=== PATIENT | male | born 1940 | race Hispanic/Latino ===

== ENCOUNTER 2021-09-22 20:23 | Inpatient (IN) | payer MEDICARE, SELFPAY ==
[2021-09-22] MEDS ORDERED: Nitroglycerin 50 MG/250 ML BOT 250 ML ONE (20:42)
[2021-09-22] MEDS ORDERED: Furosemide 40 MG/4 ML VIAL ONE (20:42)
[2021-09-22 20:53] LABS: #Eosinphils 0.3 thou/uL (0.0-0.7); #Lymphocytes 2.1 thou/uL (1.20-3.40); #Monocytes 0.6 thou/uL (0.11-0.59); #Neutrophils 6.6 thou/uL (1.40-6.50); %Basophils 0.3 % (0.0-1.0); %Eosinophils 3.3 % (0.0-10.0); %Lymphocytes 21.5 % (21.0-51.0); %Neutrophils 68.9 % (42.0-75.0); Hemoglobin 12.9 g/dL (14.0-18.0); Mean Corpuscular Hemoglobin 32.1 pg (27.0-31.0); Mean Platelet Volume 6.6 fL (7.4-10.4); Platelet Count 296 thou/uL (130-400); RBC Distribution Width 12.9 % (11.5-14.5); Red Blood Cell (RBC) Count 4.01 mill/uL (4.70-6.10); White Blood Cell (WBC) Count 9.6 thou/uL (4.8-10.8)
[2021-09-22 21:12] LABS: ALT (SGPT) 11 U/L (8-55); AST (SGOT) 24 U/L (5-34); Albumin 3.9 g/dL (3.4-4.8); Alkaline Phosphatase 114 U/L (40-110); Anion Gap 15 mmol/L (10-20); BUN (Urea Nitrogen) 35 mg/dL (8.4-25.7); Bilirubin, Total 0.3 mg/dL (0.2-1.2); Calc. Creatinine Clearance 0 mL/min (70-130); Calcium 8.6 mg/dL (7.8-10.44); Carbon Dioxide 20 mmol/L (23-31); Chloride 106 mmol/L (98-107); Globulin 2.8 g/dL (2.4-3.5); Glucose 160 mg/dL (83-110); Potassium 4.4 mmol/L (3.5-5.1); Protein, Total 6.7 g/dL (5.8-8.1); Sodium 137 mmol/L (136-145)
[2021-09-22] MEDS ORDERED: Azithromycin 500 MG VIAL ONE (21:32)
[2021-09-22] MEDS ORDERED: cefTRIAXone\\ROCEPHIN 2 GM VIAL ONE (21:32)
[2021-09-22] MEDS ORDERED: Aspirin Chewable 81 MG TAB ONE (22:54)
[2021-09-22] MEDS ORDERED: Nitroglycerin 2% Ointment 1 INCH/1 GM Packet ONE (22:59)
[2021-09-22] MEDS ORDERED: Enoxaparin Sodium 80 MG/0.8 ML SYRINGE ONE (23:13)
[2021-09-22 23:25] LABS: CKMB 4.3 ng/mL (0-6.6)
[2021-09-22] MEDS ORDERED: hydrALAZINE 20 MG/ML VIAL SLOW IVP PRN (23:51)
[2021-09-22] MEDS ORDERED: Nitroglycerin 0.4 MG TAB (25 Tab Bottle) SL PRN (23:51)
[2021-09-22] MEDS ORDERED: HYDROcodone/Acetaminophen 7.5/325 mg Tablet PO PRN (23:54)
[2021-09-22] MEDS ORDERED: Bisacodyl 5 MG TAB PO PRN (23:54)
[2021-09-22] MEDS ORDERED: Dextrose 5% in Water 1,000 ML IV PRN (23:54)
[2021-09-22] MEDS ORDERED: Zolpidem Tartrate 5 MG TAB PO PRN (23:54)
[2021-09-22] MEDS ORDERED: HumaLOG 300 UNITS/3 ML VIAL SC PRN ×2 (23:54)
[2021-09-22] MEDS ORDERED: Dextrose 50% Abboject 50 ML SYRINGE SLOW IVP PRN (23:54)
[2021-09-22] MEDS ORDERED: Acetaminophen 325 MG TAB PO PRN (23:54)
[2021-09-22] MEDS ORDERED: Ondansetron ODT 4 MG TAB PO PRN (23:54)
[2021-09-23] MEDS ORDERED: Morphine 4 MG/ML VIAL SLOW IVP PRN (00:08)
[2021-09-23] MEDS ORDERED: Furosemide 40 MG/4 ML VIAL ONE ×2 (00:14→09:01)
[2021-09-23] MEDS ORDERED: Aspirin 325 MG TAB PO SCH (00:15)
[2021-09-23] MEDS ORDERED: Furosemide 40 MG/4 ML VIAL SLOW IVP SCH (00:15)
[2021-09-23 00:20] LABS: Critical Call Chem Troponin I RESULT DECREASING; Troponin I 6.638 ng/mL (< 0.028)
[2021-09-23 04:48] LABS: Hemoglobin 12.4 g/dL (14.0-18.0); Mean Platelet Volume 6.7 fL (7.4-10.4); Platelet Count 288 thou/uL (130-400); Red Blood Cell (RBC) Count 3.86 mill/uL (4.70-6.10); White Blood Cell (WBC) Count 6.5 thou/uL (4.8-10.8)
[2021-09-23 04:53] LABS: ALT (SGPT) 10 U/L (8-55); AST (SGOT) 20 U/L (5-34); Albumin 3.8 g/dL (3.4-4.8); Alkaline Phosphatase 105 U/L (40-110); Anion Gap 18 mmol/L (10-20); BUN (Urea Nitrogen) 38 mg/dL (8.4-25.7); Bilirubin, Total 0.3 mg/dL (0.2-1.2); Calc. Creatinine Clearance 25 mL/min (70-130); Calcium 8.8 mg/dL (7.8-10.44); Carbon Dioxide 18 mmol/L (23-31); Chloride 105 mmol/L (98-107); Globulin 3.3 g/dL (2.4-3.5); Glucose 192 mg/dL (83-110); Potassium 4.3 mmol/L (3.5-5.1); Protein, Total 7.1 g/dL (5.8-8.1); Sodium 137 mmol/L (136-145)
[2021-09-23 05:15] LABS: Band 6 % (5-11); Lymphocytes 7 % (21-51); MDiff Complete? YES; Neutrophil 87 % (42-75)
[2021-09-23 05:46] LABS: Critical Call Chem Troponin I RESULT DECREASING; Troponin I 6.578 ng/mL (< 0.028)
[2021-09-23 07:07] LABS: Bacteria/HPF None Seen HPF (None Seen); Bilirubin Negative (Negative); Blood, Urine Trace (Negative); Clarity Clear (Clear); Glucose, Urine (Dipstick) Normal (Negative); Ketone, Urine Negative (Negative); Leukocyte Negative Leu/uL (Negative); Nitrite Negative (Negative); Protein, Urine (Dipstick) 20 mg/dL (Neg-Trace); RBC/HPF 0-3 HPF (0-3); Specific Gravity, Urine 1.009 (1.002-1.036); Squamous Epithelial None Seen HPF (0-3); Urobilinogen Normal mg/dL (Less than 2); WBC/HPF None Seen HPF (0-3)
[2021-09-23 07:09] LABS: Urine Culture Reflex No No
[2021-09-23 07:29] LABS: Creatinine, Urine Less than 20.00 mg/dL (63-166); Protein, Urine Random Quant 36 mg/dL (1-14); Sodium, Urine 110 mmol/L (Not Available); Urea Nitrogen, Random Urine 96 mg/dl
[2021-09-23] MEDS ORDERED: Cefepime 1 GM in Sodium Chloride 0.9% 100 ML IVPB SCH (09:00)
[2021-09-23] MEDS ORDERED: Nicotine 21 MG PATCH TD SCH (09:00)
[2021-09-23] MEDS ORDERED: Clopidogrel Bisulfate 75 MG TAB PO SCH (09:00)
[2021-09-23] MEDS ORDERED: Enoxaparin Sodium 30 MG/0.3 ML SYRINGE SC SCH (09:00)
[2021-09-23] MEDS ORDERED: Enoxaparin Sodium 30 MG/0.3 ML SYRINGE ONE (09:01)
[2021-09-23] MEDS ORDERED: Famotidine 20 MG TAB ONE (09:01)
[2021-09-23] MEDS ORDERED: Clopidogrel Bisulfate 75 MG TAB ONE (09:01)
[2021-09-23] MEDS ORDERED: Cefepime 1 GM VIAL ONE (09:01)
[2021-09-23] MEDS ORDERED: Aspirin Chewable 81 MG TAB ONE (09:01)
[2021-09-23] MEDS: Carvedilol 6.25 MG TAB PO SCH ×2 (09:18→21:53)
[2021-09-23] MEDS: Aspirin Chewable 81 MG TAB PO SCH (09:19)
[2021-09-23] MEDS: Famotidine 20 MG TAB PO SCH (09:19)
[2021-09-23] MEDS: Furosemide 40 MG/4 ML VIAL SLOW IVP SCH (09:20)
[2021-09-23 09:58] LABS: Hemoglobin 12.1 g/dL (14.0-18.0); Platelet Count 278 thou/uL (130-400)
[2021-09-23] MEDS ORDERED: Heparin 25,000 units/D5W 500 ML ONE (10:38)
[2021-09-23] MEDS ORDERED: Heparin 10,000 UNITS/ 10 ML VIAL ONE (10:40)
[2021-09-23] MEDS: Heparin 10,000 UNITS/ 10 ML VIAL SLOW IVP SCH (10:55)
[2021-09-23] MEDS: Heparin 25,000 units/D5W 500 ML IVPB SCH (11:01)
[2021-09-23 11:53] LABS: SARS-CoV-2 NAA Rapid Test Not Detected (NotDetected)
[2021-09-23] MEDS: Zinc Sulfate 220 MG CAP PO SCH (15:45)
[2021-09-23] MEDS: Sodium Bicarbonate Tab 325 MG TAB PO SCH ×2 (15:45→21:45)
[2021-09-23] MEDS ORDERED: cefTRIAXone\\ROCEPHIN 1 GM in Sodium Chloride 0.9% 100 ML IVPB SCH (20:00)
[2021-09-23] MEDS ORDERED: Atorvastatin Calcium 40 MG TAB PO SCH (21:00)
[2021-09-23] MEDS ORDERED: Azithromycin 500 MG in Sodium Chloride 0.9% 250 ML 250 ML IVPB SCH (21:00)
[2021-09-24 04:55] LABS: Anion Gap 16 mmol/L (10-20); BUN (Urea Nitrogen) 48 mg/dL (8.4-25.7); Calc. Creatinine Clearance 24 mL/min (70-130); Calcium 8.7 mg/dL (7.8-10.44); Carbon Dioxide 18 mmol/L (23-31); Cardiac Risk 3.5 (Less than 4.5); Chloride 106 mmol/L (98-107); Cholesterol 220 mg/dl (< 200 Desired); Glucose 105 mg/dL (83-110); HDL Cholesterol 63 mg/dL (>60 Neg Risk); LDL Cholesterol, Calculated 141 mg/dL; Potassium 4.4 mmol/L (3.5-5.1); Sodium 136 mmol/L (136-145); Triglycerides 79 mg/dL (Less than 150)
[2021-09-24] MEDS: Heparin 10,000 UNITS/ 10 ML VIAL SLOW IVP SCH (05:06)
[2021-09-24] MEDS: Furosemide 40 MG/4 ML VIAL SLOW IVP SCH (08:50)
[2021-09-24] MEDS: Aspirin Chewable 81 MG TAB PO SCH (08:50)
[2021-09-24] MEDS: Zinc Sulfate 220 MG CAP PO SCH (08:50)
[2021-09-24] MEDS: Famotidine 20 MG TAB PO SCH (08:50)
[2021-09-24] MEDS: Carvedilol 6.25 MG TAB PO SCH ×2 (08:50→17:37)
[2021-09-24] MEDS: Sodium Bicarbonate Tab 325 MG TAB PO SCH ×3 (08:50→20:46)
[2021-09-24] MEDS: Heparin 25,000 units/D5W 500 ML IVPB SCH (15:46)
[2021-09-24] MEDS: Atorvastatin Calcium 40 MG TAB PO SCH (20:46)
[2021-09-25 04:10] LABS: Anion Gap 16 mmol/L (10-20); BUN (Urea Nitrogen) 51 mg/dL (8.4-25.7); Calc. Creatinine Clearance 26 mL/min (70-130); Calcium 8.3 mg/dL (7.8-10.44); Carbon Dioxide 21 mmol/L (23-31); Chloride 102 mmol/L (98-107); Glucose 105 mg/dL (83-110); Potassium 3.8 mmol/L (3.5-5.1); Sodium 135 mmol/L (136-145)
[2021-09-25 08:17] LABS: Iron Binding Capacity, Total 188 mcg/dL (261-462)
[2021-09-25 08:18] LABS: Iron 62 ug/dL (65-175)
[2021-09-25] MEDS: Carvedilol 6.25 MG TAB PO SCH ×2 (08:59→17:30)
[2021-09-25] MEDS: Sodium Bicarbonate Tab 325 MG TAB PO SCH ×3 (09:00→21:20)
[2021-09-25] MEDS: Famotidine 20 MG TAB PO SCH (09:00)
[2021-09-25] MEDS: Zinc Sulfate 220 MG CAP PO SCH (09:00)
[2021-09-25] MEDS: Aspirin Chewable 81 MG TAB PO SCH (09:00)
[2021-09-25 09:59] LABS: Hemoglobin 11.6 g/dL (14.0-18.0); Platelet Count 270 thou/uL (130-400)
[2021-09-25] MEDS: Atorvastatin Calcium 40 MG TAB PO SCH (21:19)
[2021-09-25] MEDS: Enoxaparin Sodium 30 MG/0.3 ML SYRINGE SC SCH (21:19)
[2021-09-26 04:29] LABS: Anion Gap 13 mmol/L (10-20); BUN (Urea Nitrogen) 46 mg/dL (8.4-25.7); Calc. Creatinine Clearance 29 mL/min (70-130); Calcium 8.2 mg/dL (7.8-10.44); Carbon Dioxide 22 mmol/L (23-31); Chloride 105 mmol/L (98-107); Glucose 94 mg/dL (83-110); Potassium 3.9 mmol/L (3.5-5.1); Sodium 136 mmol/L (136-145)
[2021-09-26] MEDS: Carvedilol 6.25 MG TAB PO SCH ×2 (08:52→17:19)
[2021-09-26] MEDS: Famotidine 20 MG TAB PO SCH (08:52)
[2021-09-26] MEDS: Zinc Sulfate 220 MG CAP PO SCH (08:53)
[2021-09-26] MEDS: Aspirin Chewable 81 MG TAB PO SCH (08:53)
[2021-09-26] MEDS: Sodium Bicarbonate Tab 325 MG TAB PO SCH ×3 (08:53→21:12)
[2021-09-26] MEDS: Enoxaparin Sodium 30 MG/0.3 ML SYRINGE SC SCH (21:12)
[2021-09-26] MEDS: Atorvastatin Calcium 40 MG TAB PO SCH (21:12)
[2021-09-26] MEDS: GUAIFENESIN SF SOLN 200 MG/10 ML UDCUP PO PRN (21:23)
[2021-09-27 04:41] LABS: Anion Gap 14 mmol/L (10-20); BUN (Urea Nitrogen) 44 mg/dL (8.4-25.7); Calc. Creatinine Clearance 30 mL/min (70-130); Calcium 8.5 mg/dL (7.8-10.44); Carbon Dioxide 21 mmol/L (23-31); Chloride 106 mmol/L (98-107); Glucose 95 mg/dL (83-110); Sodium 137 mmol/L (136-145)
[2021-09-27 09:09] LABS: Hemoglobin 11.5 g/dL (14.0-18.0); Platelet Count 267 thou/uL (130-400)
[2021-09-27] MEDS: Carvedilol 6.25 MG TAB PO SCH ×2 (09:53→15:54)
[2021-09-27] MEDS: Aspirin Chewable 81 MG TAB PO SCH (09:54)
[2021-09-27] MEDS: Sodium Bicarbonate Tab 325 MG TAB PO SCH ×3 (09:55→19:30)
[2021-09-27] MEDS: Zinc Sulfate 220 MG CAP PO SCH (09:56)
[2021-09-27] MEDS: Famotidine 20 MG TAB PO SCH (09:56)
[2021-09-27] MEDS: GUAIFENESIN SF SOLN 200 MG/10 ML UDCUP PO PRN (15:53)
[2021-09-27] MEDS ORDERED: Nicotine 14 MG PATCH TD SCH (17:00)
[2021-09-27] MEDS ORDERED: Communication Order-Pharmacy FS SCH (17:30)
[2021-09-27] MEDS: Sodium Chloride 0.9% 1,000 ML IV SCH ×2 (18:23→19:33)
[2021-09-27] MEDS: Atorvastatin Calcium 40 MG TAB PO SCH (19:30)
[2021-09-28] MEDS: Famotidine 20 MG TAB PO SCH (04:23)
[2021-09-28] MEDS: Aspirin Chewable 81 MG TAB PO SCH (04:23)
[2021-09-28] MEDS: Sodium Bicarbonate Tab 325 MG TAB PO SCH ×3 (04:23→20:50)
[2021-09-28] MEDS: Zinc Sulfate 220 MG CAP PO SCH (04:24)
[2021-09-28 04:52] LABS: Anion Gap 12 mmol/L (10-20); BUN (Urea Nitrogen) 44 mg/dL (8.4-25.7); Calc. Creatinine Clearance 28 mL/min (70-130); Carbon Dioxide 22 mmol/L (23-31); Chloride 107 mmol/L (98-107); Glucose 91 mg/dL (83-110); Potassium 4.1 mmol/L (3.5-5.1); Sodium 137 mmol/L (136-145)
[2021-09-28] MEDS: Sodium Chloride 0.9% 1,000 ML IV SCH (05:04)
[2021-09-28] MEDS ORDERED: Lidocaine 1% (PF) 30 ML VIAL ONE (06:35)
[2021-09-28] MEDS ORDERED: Heparin 10,000 UNITS/ 10 ML VIAL ONE (06:35)
[2021-09-28] MEDS ORDERED: Midazolam HCl 2 mg/2 ml Vial ONE (07:11)
[2021-09-28] MEDS ORDERED: Fentanyl 100 MCG/2 ML VIAL ONE (07:12)
[2021-09-28] MEDS ORDERED: Sodium Chloride 0.9% 200 ML IV PRN (08:04)
[2021-09-28] MEDS ORDERED: Nitroglycerin 0.4 MG TAB (25 Tab Bottle) SL PRN (08:04)
[2021-09-28] MEDS ORDERED: Acetaminophen/Codeine 30-300mg Tablet PO PRN ×2 (08:04)
[2021-09-28] MEDS ORDERED: Sodium Chloride 0.9% 1,000 ML IV SCH (08:06)
[2021-09-28] MEDS: Carvedilol 6.25 MG TAB PO SCH ×2 (09:33→17:44)
[2021-09-28] MEDS ORDERED: Iopamidol 370 76% 100 ML VIAL ONE (10:03)
[2021-09-28] MEDS: Atorvastatin Calcium 40 MG TAB PO SCH (20:50)
[2021-09-29 04:38] LABS: Anion Gap 12 mmol/L (10-20); BUN (Urea Nitrogen) 43 mg/dL (8.4-25.7); Calc. Creatinine Clearance 29 mL/min (70-130); Calcium 7.7 mg/dL (7.8-10.44); Carbon Dioxide 21 mmol/L (23-31); Chloride 108 mmol/L (98-107); Glucose 89 mg/dL (83-110); Potassium 4.1 mmol/L (3.5-5.1); Sodium 137 mmol/L (136-145)
[2021-09-29] MEDS: Carvedilol 6.25 MG TAB PO SCH (08:56)
[2021-09-29] MEDS: Famotidine 20 MG TAB PO SCH (08:57)
[2021-09-29] MEDS: Sodium Bicarbonate Tab 325 MG TAB PO SCH ×3 (08:57→21:02)
[2021-09-29] MEDS: Zinc Sulfate 220 MG CAP PO SCH (08:58)
[2021-09-29] MEDS: Aspirin Chewable 81 MG TAB PO SCH (09:01)
[2021-09-29 09:25] LABS: Hemoglobin 12.1 g/dL (14.0-18.0); Platelet Count 292 thou/uL (130-400)
[2021-09-29] MEDS ORDERED: Ergocalciferol 1.25 MG(50,000 UNITS) CAP PO SCH (10:45)
[2021-09-29] MEDS: Carvedilol 3.125 MG TAB PO SCH (17:33)
[2021-09-29] MEDS: hydrALAZINE 10 MG TAB PO SCH (21:02)
[2021-09-29] MEDS: Atorvastatin Calcium 40 MG TAB PO SCH (21:02)
[2021-09-29 23:37] LABS: SARS-CoV-2 PCR by NAA Not Detected (NotDetected)
[2021-09-30 03:59] LABS: Anion Gap 11 mmol/L (10-20); BUN (Urea Nitrogen) 41 mg/dL (8.4-25.7); Calc. Creatinine Clearance 28 mL/min (70-130); Calcium 7.8 mg/dL (7.8-10.44); Carbon Dioxide 20 mmol/L (23-31); Chloride 110 mmol/L (98-107); Glucose 89 mg/dL (83-110); Potassium 4.1 mmol/L (3.5-5.1); Sodium 137 mmol/L (136-145)
[2021-09-30] MEDS: Empagliflozin 10 MG TAB PO SCH (10:04)
[2021-09-30] MEDS: Famotidine 20 MG TAB PO SCH (10:04)
[2021-09-30] MEDS: Sodium Bicarbonate Tab 325 MG TAB PO SCH ×3 (10:04→21:27)
[2021-09-30] MEDS: Aspirin Chewable 81 MG TAB PO SCH (10:04)
[2021-09-30] MEDS: Zinc Sulfate 220 MG CAP PO SCH (10:04)
[2021-09-30] MEDS: Carvedilol 3.125 MG TAB PO SCH ×2 (10:06→17:29)
[2021-09-30] MEDS: hydrALAZINE 10 MG TAB PO SCH ×3 (10:07→21:27)
[2021-09-30] MEDS ORDERED: Furosemide 20 MG TAB PO SCH (11:15)
[2021-09-30 13:09] VITALS: BMI 24.4
[2021-09-30] MEDS: Atorvastatin Calcium 40 MG TAB PO SCH (21:27)
[2021-10-01 04:20] LABS: Anion Gap 13 mmol/L (10-20); BUN (Urea Nitrogen) 38 mg/dL (8.4-25.7); Calc. Creatinine Clearance 24 mL/min (70-130); Carbon Dioxide 22 mmol/L (23-31); Chloride 106 mmol/L (98-107); Glucose 87 mg/dL (83-110); Potassium 4.1 mmol/L (3.5-5.1); Sodium 137 mmol/L (136-145)
[2021-10-01] MEDS: Carvedilol 3.125 MG TAB PO SCH ×3 (09:03→17:19)
[2021-10-01] MEDS: Aspirin Chewable 81 MG TAB PO SCH (09:03)
[2021-10-01] MEDS: Famotidine 20 MG TAB PO SCH (09:04)
[2021-10-01] MEDS: hydrALAZINE 10 MG TAB PO SCH ×3 (09:04→23:56)
[2021-10-01] MEDS: Empagliflozin 10 MG TAB PO SCH (09:04)
[2021-10-01] MEDS: Furosemide 20 MG TAB PO SCH (09:04)
[2021-10-01] MEDS: Sodium Bicarbonate Tab 325 MG TAB PO SCH ×3 (09:05→21:46)
[2021-10-01] MEDS: Zinc Sulfate 220 MG CAP PO SCH (09:06)
[2021-10-01] MEDS: Atorvastatin Calcium 40 MG TAB PO SCH (21:46)
[2021-10-02 05:14] LABS: Anion Gap 16 mmol/L (10-20); BUN (Urea Nitrogen) 42 mg/dL (8.4-25.7); Calc. Creatinine Clearance 25 mL/min (70-130); Calcium 8.6 mg/dL (7.8-10.44); Carbon Dioxide 22 mmol/L (23-31); Chloride 103 mmol/L (98-107); Glucose 93 mg/dL (83-110); Potassium 4.6 mmol/L (3.5-5.1); Sodium 136 mmol/L (136-145)
[2021-10-02] MEDS ORDERED: Sodium Bicarbonate Tab 325 MG TAB PO SCH (09:00)
[2021-10-02] MEDS: Zinc Sulfate 220 MG CAP PO SCH (10:44)
[2021-10-02] MEDS: Famotidine 20 MG TAB PO SCH (10:45)
[2021-10-02] MEDS: Empagliflozin 10 MG TAB PO SCH (10:45)
[2021-10-02] MEDS: hydrALAZINE 10 MG TAB PO SCH (10:45)
[2021-10-02] MEDS: Furosemide 20 MG TAB PO SCH (10:45)
[2021-10-02] MEDS: Aspirin Chewable 81 MG TAB PO SCH (10:45)
[2021-10-02] MEDS: Carvedilol 3.125 MG TAB PO SCH (10:46)
[2021-10-02 12:01] VITALS: TEMP 97.9
[2021-10-02 12:12] VITALS: BP 175/67
[2021-10-06] MEDS ORDERED: Ergocalciferol 1.25 MG(50,000 UNITS) CAP PO SCH (09:00)
== END 2021-10-02 13:30 | disposition home or self-care (01) | DRG 280 ==
LOC: ERS 20:23 → ERHOLD 23:23 → 2NO 09-23 18:07
PROVIDERS: ADMIT Student in an Organized Health Care Education/Training Program; ATTEND Internal Medicine
PROC: 5A09357 Assistance with Respiratory Ventilation, Less than 24 Consecutive Hours, Continuous Positive Airway Pressure (ICD-10-PCS; principal; 2021-09-22)
PROC: B2111ZZ Fluoroscopy of Multiple Coronary Arteries using Low Osmolar Contrast (ICD-10-PCS; 2021-09-28)
DX: I13.0 Hypertensive heart and chronic kidney disease with heart failure and stage 1 through stage 4 chronic kidney disease, or unspecified chronic kidney disease (principal); J96.01 Acute respiratory failure with hypoxia; I21.A1 Myocardial infarction type 2; J18.9 Pneumonia, unspecified organism; I50.43 Acute on chronic combined systolic (congestive) and diastolic (congestive) heart failure; C95.01 Acute leukemia of unspecified cell type, in remission; N17.9 Acute kidney failure, unspecified; E87.2 Acidosis; M62.82 Rhabdomyolysis; N18.4 Chronic kidney disease, stage 4 (severe); I25.5 Ischemic cardiomyopathy; E78.00 Pure hypercholesterolemia, unspecified; R59.0 Localized enlarged lymph nodes; D63.1 Anemia in chronic kidney disease; T50.8X5A Adverse effect of diagnostic agents, initial encounter; I25.10 Atherosclerotic heart disease of native coronary artery without angina pectoris; E11.22 Type 2 diabetes mellitus with diabetic chronic kidney disease; E78.5 Hyperlipidemia, unspecified; E83.51 Hypocalcemia; I08.0 Rheumatic disorders of both mitral and aortic valves; J43.9 Emphysema, unspecified; F17.210 Nicotine dependence, cigarettes, uncomplicated; R91.1 Solitary pulmonary nodule; Z20.822 Contact with and (suspected) exposure to COVID-19; Z71.6 Tobacco abuse counseling; Z79.84 Long term (current) use of oral hypoglycemic drugs; Z79.899 Other long term (current) drug therapy; Z92.21 Personal history of antineoplastic chemotherapy; Z79.82 Long term (current) use of aspirin
CPT/HCPCS: 36415; 36416; 71045; 71275; 76536; 76770; 80048; 80053; 80061; 81001; 82306; 82550; 82553; 82570; 82728; 83540; 83550; 83880; 84156; 84300; 84443; 84484; 84540; 85007; 85014; 85018; 85025; 85027; 85049; 85347; 85379; 85730; 86140; 87040; 93005; 93306; 93454; 93798; 93880; 94660; 94760; 96365; 96366; 96372; 96375; 99152; J0456; J0692; J0696; J1644; J1650; J1940; J2001; J2250; J3010; J3490; J7050; J7620; Q9967; U0002; U0003; U0005

== ENCOUNTER 2021-10-25 02:50 | Inpatient (IN) | payer MEDICARE ==
[2021-10-25 03:06] VITALS: BMI 22.7
[2021-10-25] MEDS ORDERED: Ondansetron PF 4 MG/2 ML Vial IVP PRN (03:37)
[2021-10-25] MEDS ORDERED: Dextrose 50% Abboject 50 ML SYRINGE SLOW IVP PRN (04:01)
[2021-10-25] MEDS ORDERED: Dextrose 5% in Water 1,000 ML IV PRN (04:01)
[2021-10-25] MEDS ORDERED: HumaLOG 300 UNITS/3 ML VIAL SC PRN ×2 (04:01)
[2021-10-25 04:11] LABS: #Lymphocytes 0.6 thou/uL (1.20-3.40); #Monocytes 0.7 thou/uL (0.11-0.59); %Eosinophils 0.1 % (0.0-10.0); %Lymphocytes 3.7 % (21.0-51.0); %Monocytes 4.5 % (0.0-10.0); %Neutrophils 91.7 % (42.0-75.0); Hemoglobin 8.4 g/dL (14.0-18.0); Mean Corpuscular HGB CONC 32.4 g/dL (32.0-36.0); Mean Corpuscular Hemoglobin 32.3 pg (27.0-31.0); Mean Corpuscular Volume 99.9 fL (78.0-98.0); Mean Platelet Volume 6.1 fL (7.4-10.4); Platelet Count 262 thou/uL (130-400); RBC Distribution Width 12.7 % (11.5-14.5); Red Blood Cell (RBC) Count 2.58 mill/uL (4.70-6.10); White Blood Cell (WBC) Count 15.3 thou/uL (4.8-10.8)
[2021-10-25 04:29] LABS: Lactic Acid 0.6 mmol/L (0.5-2.2)
[2021-10-25 04:32] LABS: Anion Gap 16 mmol/L (10-20); BUN (Urea Nitrogen) 61 mg/dL (8.4-25.7); Calc. Creatinine Clearance 23 mL/min (70-130); Calcium 8.1 mg/dL (7.8-10.44); Carbon Dioxide 15 mmol/L (23-31); Chloride 107 mmol/L (98-107); Glucose 115 mg/dL (83-110); Potassium 4.4 mmol/L (3.5-5.1); Sodium 134 mmol/L (136-145)
[2021-10-25] MEDS ORDERED: Sodium Bicarb 50 MEQ/50 ML Abboject 8.4% SYRINGE IVP SCH (05:15)
[2021-10-25 05:17] LABS: Critical Call Chem Troponin I 2NO.JDH; Troponin I 0.362 ng/mL (< 0.028)
[2021-10-25] MEDS: Cefepime 2 GM in Sodium Chloride 0.9% 100 ML IVPB SCH (05:44)
[2021-10-25 07:11] LABS: Iron 12 ug/dL (65-175); Iron Binding Capacity, Total 211 mcg/dL (261-462)
[2021-10-25 07:49] LABS: Troponin I 0.535 ng/mL (< 0.028)
[2021-10-25] MEDS: Sodium Bicarbonate Tab 325 MG TAB PO SCH ×3 (08:13→20:33)
[2021-10-25] MEDS: Carvedilol 3.125 MG TAB PO SCH ×2 (08:13→16:14)
[2021-10-25] MEDS ORDERED: Heparin 5,000 UNITS/ML VIAL SC SCH (09:00)
[2021-10-25] MEDS ORDERED: Iron, Sodium Ferric Gluconate 250 MG in Sodium Chloride 0.9% 250 ML 250 ML IVPB SCH (09:15)
[2021-10-25 12:00] LABS: Hemoglobin 8.5 g/dL (14.0-18.0)
[2021-10-25 12:15] LABS: Vancomycin, Random 8.2 ug/mL (See Comment)
[2021-10-25] MEDS: Acetaminophen 325 MG TAB PO PRN ×2 (13:27→20:33)
[2021-10-25] MEDS: Vancomycin HCl 750 MG in Sodium Chloride 0.9% 250 ML 250 ML IVPB SCH ×2 (13:28→14:34)
[2021-10-25] MEDS ORDERED: guaiFENesin ER 600 MG TAB PO SCH (13:30)
[2021-10-25] MEDS: Atorvastatin Calcium 40 MG TAB PO SCH (20:32)
[2021-10-25] MEDS: guaiFENesin ER 600 MG TAB PO SCH (20:32)
[2021-10-25] MEDS: Heparin 5,000 UNITS/ML VIAL SC SCH (20:33)
[2021-10-25 23:50] LABS: Anion Gap 12 mmol/L (10-20); BUN (Urea Nitrogen) 50 mg/dL (8.4-25.7); Calc. Creatinine Clearance 24 mL/min (70-130); Calcium 8.1 mg/dL (7.8-10.44); Carbon Dioxide 21 mmol/L (23-31); Chloride 107 mmol/L (98-107); Glucose 112 mg/dL (83-110); Phosphorus 3.9 mg/dL (2.3-4.7); Potassium 3.7 mmol/L (3.5-5.1); Sodium 136 mmol/L (136-145)
[2021-10-26] MEDS: Cefepime 2 GM in Sodium Chloride 0.9% 100 ML IVPB SCH (04:52)
[2021-10-26] MEDS: Acetaminophen 325 MG TAB PO PRN ×2 (04:54→16:38)
[2021-10-26 05:30] LABS: #Lymphocytes 0.8 thou/uL (1.20-3.40); #Monocytes 0.5 thou/uL (0.11-0.59); #Neutrophils 8.9 thou/uL (1.40-6.50); %Basophils 0.1 % (0.0-1.0); %Eosinophils 0.2 % (0.0-10.0); %Lymphocytes 7.5 % (21.0-51.0); %Monocytes 4.9 % (0.0-10.0); %Neutrophils 87.4 % (42.0-75.0); Anion Gap 15 mmol/L (10-20); BUN (Urea Nitrogen) 46 mg/dL (8.4-25.7); Calc. Creatinine Clearance 24 mL/min (70-130); Calcium 8.6 mg/dL (7.8-10.44); Carbon Dioxide 20 mmol/L (23-31); Chloride 106 mmol/L (98-107); Glucose 100 mg/dL (83-110); Hemoglobin 9.7 g/dL (14.0-18.0); Mean Corpuscular Hemoglobin 33.6 pg (27.0-31.0); Mean Platelet Volume 6.6 fL (7.4-10.4); Platelet Count 238 thou/uL (130-400); RBC Distribution Width 13.1 % (11.5-14.5); Red Blood Cell (RBC) Count 2.89 mill/uL (4.70-6.10); Sodium 137 mmol/L (136-145); White Blood Cell (WBC) Count 10.2 thou/uL (4.8-10.8)
[2021-10-26] MEDS: Carvedilol 3.125 MG TAB PO SCH ×2 (08:52→16:39)
[2021-10-26] MEDS: guaiFENesin ER 600 MG TAB PO SCH ×2 (08:52→21:34)
[2021-10-26] MEDS: Heparin 5,000 UNITS/ML VIAL SC SCH ×2 (08:52→21:35)
[2021-10-26] MEDS: Iron, Sodium Ferric Gluconate 250 MG in Sodium Chloride 0.9% 250 ML 250 ML IVPB SCH (09:32)
[2021-10-26] MEDS: Sodium Bicarbonate Tab 325 MG TAB PO SCH ×3 (10:10→21:34)
[2021-10-26 11:36] LABS: Creatinine, Urine 85.61 mg/dL (63-166)
[2021-10-26 12:28] LABS: Vancomycin, Trough 10.7 ug/mL
[2021-10-26] MEDS ORDERED: Vancomycin HCl 750 MG in Sodium Chloride 0.9% 250 ML 250 ML IVPB SCH (16:00)
[2021-10-26] MEDS: Atorvastatin Calcium 40 MG TAB PO SCH (21:35)
[2021-10-27] MEDS: Cefepime 2 GM in Sodium Chloride 0.9% 100 ML IVPB SCH (04:23)
[2021-10-27 04:47] LABS: #Lymphocytes 0.7 thou/uL (1.20-3.40); #Monocytes 0.5 thou/uL (0.11-0.59); #Neutrophils 6.4 thou/uL (1.40-6.50); %Basophils 0.1 % (0.0-1.0); %Eosinophils 0.6 % (0.0-10.0); %Lymphocytes 8.9 % (21.0-51.0); %Neutrophils 84.4 % (42.0-75.0); Hemoglobin 9.5 g/dL (14.0-18.0); Mean Corpuscular HGB CONC 31.9 g/dL (32.0-36.0); Mean Corpuscular Hemoglobin 32.4 pg (27.0-31.0); Mean Platelet Volume 6.3 fL (7.4-10.4); Platelet Count 214 thou/uL (130-400); RBC Distribution Width 12.9 % (11.5-14.5); Red Blood Cell (RBC) Count 2.93 mill/uL (4.70-6.10); White Blood Cell (WBC) Count 7.6 thou/uL (4.8-10.8)
[2021-10-27 05:05] LABS: Anion Gap 13 mmol/L (10-20); BUN (Urea Nitrogen) 36 mg/dL (8.4-25.7); Calc. Creatinine Clearance 25 mL/min (70-130); Calcium 8.3 mg/dL (7.8-10.44); Carbon Dioxide 20 mmol/L (23-31); Cardiac Risk 2.5 (Less than 4.5); Chloride 105 mmol/L (98-107); Cholesterol 129 mg/dl (< 200 Desired); Glucose 109 mg/dL (83-110); HDL Cholesterol 51 mg/dL (>60 Neg Risk); LDL Cholesterol, Calculated 64 mg/dL; Potassium 3.7 mmol/L (3.5-5.1); Sodium 134 mmol/L (136-145); Triglycerides 71 mg/dL (Less than 150)
[2021-10-27] MEDS: Carvedilol 3.125 MG TAB PO SCH ×2 (09:23→18:02)
[2021-10-27] MEDS: guaiFENesin ER 600 MG TAB PO SCH ×2 (09:23→20:34)
[2021-10-27] MEDS: Sodium Bicarbonate Tab 325 MG TAB PO SCH (09:23)
[2021-10-27] MEDS: Iron, Sodium Ferric Gluconate 250 MG in Sodium Chloride 0.9% 250 ML 250 ML IVPB SCH (09:24)
[2021-10-27] MEDS: Heparin 5,000 UNITS/ML VIAL SC SCH ×2 (09:24→20:34)
[2021-10-27] MEDS ORDERED: Furosemide 40 MG/4 ML VIAL SLOW IVP SCH (10:35)
[2021-10-27] MEDS: Acetaminophen 325 MG TAB PO PRN (11:20)
[2021-10-27 11:58] LABS: SARS-CoV-2 PCR by NAA Not Detected (NotDetected)
[2021-10-27] MEDS ORDERED: Melatonin 3 MG TAB PO PRN (13:39)
[2021-10-27] MEDS ORDERED: Furosemide 20 MG/2 ML VIAL SLOW IVP SCH (14:45)
[2021-10-27 16:23] LABS: Vancomycin, Random 12.4 ug/mL (See Comment)
[2021-10-27] MEDS ORDERED: Vancomycin HCl 750 MG in Sodium Chloride 0.9% 250 ML 250 ML IVPB SCH (16:45)
[2021-10-27] MEDS: Atorvastatin Calcium 40 MG TAB PO SCH (20:34)
[2021-10-28 04:36] LABS: #Eosinphils 0.1 thou/uL (0.0-0.7); #Lymphocytes 0.9 thou/uL (1.20-3.40); #Monocytes 0.5 thou/uL (0.11-0.59); #Neutrophils 3.1 thou/uL (1.40-6.50); %Basophils 0.2 % (0.0-1.0); %Eosinophils 1.7 % (0.0-10.0); %Lymphocytes 20.4 % (21.0-51.0); %Monocytes 9.9 % (0.0-10.0); %Neutrophils 67.8 % (42.0-75.0); Hemoglobin 8.3 g/dL (14.0-18.0); Mean Corpuscular HGB CONC 32.6 g/dL (32.0-36.0); Mean Corpuscular Hemoglobin 32.9 pg (27.0-31.0); Mean Platelet Volume 6.8 fL (7.4-10.4); Platelet Count 177 thou/uL (130-400); RBC Distribution Width 12.8 % (11.5-14.5); Red Blood Cell (RBC) Count 2.51 mill/uL (4.70-6.10); White Blood Cell (WBC) Count 4.6 thou/uL (4.8-10.8)
[2021-10-28 04:44] LABS: Anion Gap 13 mmol/L (10-20); BUN (Urea Nitrogen) 36 mg/dL (8.4-25.7); Calc. Creatinine Clearance 24 mL/min (70-130); Calcium 8.1 mg/dL (7.8-10.44); Carbon Dioxide 23 mmol/L (23-31); Chloride 101 mmol/L (98-107); Glucose 104 mg/dL (83-110); Potassium 3.3 mmol/L (3.5-5.1); Sodium 134 mmol/L (136-145)
[2021-10-28] MEDS: Cefepime 2 GM in Sodium Chloride 0.9% 100 ML IVPB SCH (05:44)
[2021-10-28] MEDS ORDERED: Epoetin (ESRD) 20,000 UNITS/ML SC SCH (08:45)
[2021-10-28] MEDS: guaiFENesin ER 600 MG TAB PO SCH ×2 (09:10→20:36)
[2021-10-28] MEDS: Iron, Sodium Ferric Gluconate 250 MG in Sodium Chloride 0.9% 250 ML 250 ML IVPB SCH (09:11)
[2021-10-28] MEDS: Heparin 5,000 UNITS/ML VIAL SC SCH ×2 (09:11→20:36)
[2021-10-28] MEDS: Carvedilol 3.125 MG TAB PO SCH ×2 (09:11→17:56)
[2021-10-28] MEDS ORDERED: Potassium Chloride 20 MEQ TAB PO SCH (09:15)
[2021-10-28 09:45] LABS: Magnesium 1.6 mg/dL (1.6-2.6)
[2021-10-28] MEDS: Acetaminophen 325 MG TAB PO PRN (11:45)
[2021-10-28] MEDS ORDERED: EPOETIN ALFA-EPBX (ESRD) 10,000 UNIT/ML VIAL SC SCH (12:00)
[2021-10-28] MEDS ORDERED: Magnesium 2 GM/50 ML(in water) 2 GM in Premix Bag 1 BAG IVPB SCH (14:15)
[2021-10-28 16:34] LABS: Vancomycin, Random 14.2 ug/mL (See Comment)
[2021-10-28] MEDS ORDERED: Vancomycin 1 GM in Premix Bag 1 BAG IVPB SCH (17:15)
[2021-10-28] MEDS: Atorvastatin Calcium 40 MG TAB PO SCH (20:36)
[2021-10-29] MEDS: Cefepime 2 GM in Sodium Chloride 0.9% 100 ML IVPB SCH (06:06)
[2021-10-29 08:02] LABS: Anion Gap 13 mmol/L (10-20); BUN (Urea Nitrogen) 34 mg/dL (8.4-25.7); BUN/Creatinine Ratio 16.27; Calc. Creatinine Clearance 26 mL/min (70-130); Calcium 8.1 mg/dL (7.8-10.44); Carbon Dioxide 22 mmol/L (23-31); Chloride 106 mmol/L (98-107); Glucose 103 mg/dL (83-110); Phosphorus 2.5 mg/dL (2.3-4.7); Sodium 137 mmol/L (136-145)
[2021-10-29] MEDS ORDERED: Spironolactone 25 MG TAB PO SCH (08:30)
[2021-10-29] MEDS: Iron, Sodium Ferric Gluconate 250 MG in Sodium Chloride 0.9% 250 ML 250 ML IVPB SCH (09:36)
[2021-10-29] MEDS: Sodium Bicarbonate Tab 325 MG TAB PO SCH ×4 (09:37→20:46)
[2021-10-29] MEDS: guaiFENesin ER 600 MG TAB PO SCH ×2 (09:38→20:45)
[2021-10-29] MEDS: Spironolactone 25 MG TAB PO SCH (09:38)
[2021-10-29] MEDS: Furosemide 20 MG TAB PO SCH (09:38)
[2021-10-29] MEDS: Carvedilol 3.125 MG TAB PO SCH ×2 (09:38→17:36)
[2021-10-29] MEDS: Heparin 5,000 UNITS/ML VIAL SC SCH ×2 (09:39→20:46)
[2021-10-29] MEDS ORDERED: Sodium Bicarbonate Tab 325 MG TAB PO SCH (09:45)
[2021-10-29 17:30] LABS: Vancomycin, Random 17.6 ug/mL (See Comment)
[2021-10-29] MEDS ORDERED: Vancomycin HCl 250 MG in Sodium Chloride 0.9% 100 ML IVPB SCH (18:00)
[2021-10-29] MEDS: Acetaminophen 325 MG TAB PO PRN (18:48)
[2021-10-29] MEDS: Atorvastatin Calcium 40 MG TAB PO SCH (20:46)
[2021-10-30 04:52] LABS: Anion Gap 14 mmol/L (10-20); BUN (Urea Nitrogen) 33 mg/dL (8.4-25.7); BUN/Creatinine Ratio 15.71; Calc. Creatinine Clearance 26 mL/min (70-130); Calcium 8.1 mg/dL (7.8-10.44); Carbon Dioxide 22 mmol/L (23-31); Chloride 105 mmol/L (98-107); Glucose 92 mg/dL (83-110); Phosphorus 3.2 mg/dL (2.3-4.7); Potassium 3.9 mmol/L (3.5-5.1); Sodium 137 mmol/L (136-145)
[2021-10-30] MEDS: Cefepime 2 GM in Sodium Chloride 0.9% 100 ML IVPB SCH (06:34)
[2021-10-30 09:08] LABS: Band 12 % (5-11); Eosinophils 6 % (0-10); Hemoglobin 8.5 g/dL (14.0-18.0); Lymphocytes 15 % (21-51); MDiff Complete? YES; Macrocytosis SLIGHT = 6-15 cells (100X) (0-5/hpf); Mean Corpuscular HGB CONC 32.2 g/dL (32.0-36.0); Mean Corpuscular Hemoglobin 32.9 pg (27.0-31.0); Mean Platelet Volume 6.8 fL (7.4-10.4); Monocytes 9 % (0-10); Neutrophil 56 % (42-75); Platelet Count 170 thou/uL (130-400); Platelet Morphology Comment Appears Adequate; Polychromasia SLIGHT = 2-3 cells (100X) (0-2/hpf); Red Blood Cell (RBC) Count 2.57 mill/uL (4.70-6.10); White Blood Cell (WBC) Count 5.5 thou/uL (4.8-10.8)
[2021-10-30] MEDS: Sodium Bicarbonate Tab 325 MG TAB PO SCH ×3 (09:34→20:40)
[2021-10-30] MEDS: Spironolactone 25 MG TAB PO SCH (09:35)
[2021-10-30] MEDS: Furosemide 20 MG TAB PO SCH (09:35)
[2021-10-30] MEDS: Carvedilol 3.125 MG TAB PO SCH ×2 (09:35→16:25)
[2021-10-30] MEDS: Heparin 5,000 UNITS/ML VIAL SC SCH ×2 (09:35→20:42)
[2021-10-30] MEDS: guaiFENesin ER 600 MG TAB PO SCH ×2 (09:35→20:40)
[2021-10-30] MEDS: Acetaminophen 325 MG TAB PO PRN (09:42)
[2021-10-30] MEDS ORDERED: Iron, Sodium Ferric Gluconate 250 MG in Sodium Chloride 0.9% 250 ML 250 ML IVPB SCH (11:45)
[2021-10-30 12:08] LABS: Magnesium 1.9 mg/dL (1.6-2.6)
[2021-10-30] MEDS: Atorvastatin Calcium 40 MG TAB PO SCH (20:40)
[2021-10-31 04:27] LABS: #Eosinphils 0.2 thou/uL (0.0-0.7); #Lymphocytes 1.6 thou/uL (1.20-3.40); #Monocytes 0.8 thou/uL (0.11-0.59); #Neutrophils 3.6 thou/uL (1.40-6.50); %Eosinophils 3.7 % (0.0-10.0); %Lymphocytes 25.3 % (21.0-51.0); %Monocytes 12.9 % (0.0-10.0); %Neutrophils 58.1 % (42.0-75.0); Hemoglobin 8.4 g/dL (14.0-18.0); Mean Corpuscular HGB CONC 32.3 g/dL (32.0-36.0); Mean Corpuscular Hemoglobin 32.8 pg (27.0-31.0); Mean Platelet Volume 6.8 fL (7.4-10.4); Platelet Count 183 thou/uL (130-400); RBC Distribution Width 13.3 % (11.5-14.5); Red Blood Cell (RBC) Count 2.57 mill/uL (4.70-6.10); White Blood Cell (WBC) Count 6.1 thou/uL (4.8-10.8)
[2021-10-31 04:53] LABS: Albumin 3.1 g/dL (3.4-4.8); Anion Gap 13 mmol/L (10-20); BUN (Urea Nitrogen) 30 mg/dL (8.4-25.7); BUN/Creatinine Ratio 15.63; Calc. Creatinine Clearance 29 mL/min (70-130); Calcium 8.2 mg/dL (7.8-10.44); Carbon Dioxide 22 mmol/L (23-31); Chloride 106 mmol/L (98-107); Glucose 96 mg/dL (83-110); Phosphorus 2.4 mg/dL (2.3-4.7); Sodium 137 mmol/L (136-145)
[2021-10-31] MEDS: Sodium Bicarbonate Tab 325 MG TAB PO SCH ×3 (07:30→20:28)
[2021-10-31] MEDS: guaiFENesin ER 600 MG TAB PO SCH ×2 (07:30→20:28)
[2021-10-31] MEDS: Carvedilol 3.125 MG TAB PO SCH ×2 (07:31→17:09)
[2021-10-31] MEDS: Spironolactone 25 MG TAB PO SCH (07:31)
[2021-10-31] MEDS: Furosemide 20 MG TAB PO SCH (07:31)
[2021-10-31] MEDS: Heparin 5,000 UNITS/ML VIAL SC SCH ×2 (07:31→20:29)
[2021-10-31] MEDS: Atorvastatin Calcium 40 MG TAB PO SCH (20:28)
[2021-11-01 05:15] LABS: Hemoglobin 8.4 g/dL (14.0-18.0); Mean Corpuscular HGB CONC 33.1 g/dL (32.0-36.0); Mean Corpuscular Hemoglobin 34.1 pg (27.0-31.0); Mean Platelet Volume 7.2 fL (7.4-10.4); Platelet Count 195 thou/uL (130-400); RBC Distribution Width 13.9 % (11.5-14.5); Red Blood Cell (RBC) Count 2.47 mill/uL (4.70-6.10); White Blood Cell (WBC) Count 6.1 thou/uL (4.8-10.8)
[2021-11-01 05:20] LABS: Albumin 3.1 g/dL (3.4-4.8); Anion Gap 16 mmol/L (10-20); BUN (Urea Nitrogen) 28 mg/dL (8.4-25.7); BUN/Creatinine Ratio 15.38; Calc. Creatinine Clearance 30 mL/min (70-130); Calcium 8.2 mg/dL (7.8-10.44); Carbon Dioxide 21 mmol/L (23-31); Chloride 104 mmol/L (98-107); Glucose 88 mg/dL (83-110); Phosphorus 2.7 mg/dL (2.3-4.7); Potassium 3.8 mmol/L (3.5-5.1); Sodium 137 mmol/L (136-145)
[2021-11-01 05:42] LABS: Band 6 % (5-11); Eosinophils 5 % (0-10); Lymphocytes 30 % (21-51); MDiff Complete? YES; Monocytes 11 % (0-10); Neutrophil 47 % (42-75)
[2021-11-01] MEDS: Heparin 5,000 UNITS/ML VIAL SC SCH (08:56)
[2021-11-01] MEDS: Sodium Bicarbonate Tab 325 MG TAB PO SCH ×3 (08:56→16:30)
[2021-11-01] MEDS: Carvedilol 3.125 MG TAB PO SCH ×2 (09:36→16:30)
[2021-11-01] MEDS: Furosemide 20 MG TAB PO SCH (09:36)
[2021-11-01] MEDS: Spironolactone 25 MG TAB PO SCH (09:36)
[2021-11-01] MEDS: guaiFENesin ER 600 MG TAB PO SCH (09:36)
[2021-11-01 11:44] VITALS: TEMP 98.3
[2021-11-01 16:29] VITALS: BP 124/59
== END 2021-11-01 18:52 | disposition home health service (06) | DRG 871 ==
LOC: 2NO 02:50
PROVIDERS: ADMIT Emergency Medicine; ATTEND Emergency Medicine
DX: A41.9 Sepsis, unspecified organism (principal); Z20.822 Contact with and (suspected) exposure to COVID-19; I21.4 Non-ST elevation (NSTEMI) myocardial infarction; J18.9 Pneumonia, unspecified organism; I50.23 Acute on chronic systolic (congestive) heart failure; I47.2 Ventricular tachycardia; N17.9 Acute kidney failure, unspecified; E87.2 Acidosis; I13.0 Hypertensive heart and chronic kidney disease with heart failure and stage 1 through stage 4 chronic kidney disease, or unspecified chronic kidney disease; I25.10 Atherosclerotic heart disease of native coronary artery without angina pectoris; I25.5 Ischemic cardiomyopathy; N18.30 Chronic kidney disease, stage 3 unspecified; D63.1 Anemia in chronic kidney disease; J44.9 Chronic obstructive pulmonary disease, unspecified; E11.22 Type 2 diabetes mellitus with diabetic chronic kidney disease; E87.5 Hyperkalemia; E78.5 Hyperlipidemia, unspecified; R77.8 Other specified abnormalities of plasma proteins; D50.9 Iron deficiency anemia, unspecified; E86.9 Volume depletion, unspecified; E78.00 Pure hypercholesterolemia, unspecified; I49.1 Atrial premature depolarization; E87.6 Hypokalemia; E83.42 Hypomagnesemia; Z28.21 Immunization not carried out because of patient refusal; Z85.6 Personal history of leukemia; Z79.899 Other long term (current) drug therapy; Z79.82 Long term (current) use of aspirin; Z92.21 Personal history of antineoplastic chemotherapy; Z87.891 Personal history of nicotine dependence
CPT/HCPCS: 36415; 36416; 71045; 80048; 80061; 80069; 80202; 82274; 82570; 83540; 83550; 83605; 83735; 84100; 84145; 84156; 84300; 85025; 87081; 94640; J0692; J1644; J1940; J2916; J3370; J3475; J3490; J7050; J7620; Q5105; U0003; U0005

== ENCOUNTER 2021-12-09 10:10 | Outpatient (CLI) | payer MEDICARE ==
[2021-12-09 12:11] LABS: Hemoglobin 9.4 g/dL (13.5-17.5); Mean Corpuscular HGB CONC 32.1 g/dL (32.0-36.0); Mean Corpuscular Hemoglobin 32.5 pg (27.0-33.0); Mean Corpuscular Volume 101.4 fl (81.2-95.1); Mean Platelet Volume 9.1 fl (7.4-10.4); Platelet Count 228 10x3/uL (150-450); RBC Distribution Width 15.6 % (11.5-14.5); Red Blood Cell (RBC) Count 2.89 10x6/uL (4.32-5.72); White Blood Cell (WBC) Count 6.5 10x3/uL (3.5-10.5)
[2021-12-09 12:35] LABS: Anion Gap 14 mmol/L (10-20); BUN (Urea Nitrogen) 48 mg/dL (8.4-25.7); Calc. Creatinine Clearance 0 mL/min (70-130); Calcium 8.8 mg/dL (7.8-10.44); Carbon Dioxide 23 mmol/L (23-31); Chloride 106 mmol/L (98-107); Glucose 91 mg/dL (83-110); Potassium 5.3 mmol/L (3.5-5.1); Sodium 138 mmol/L (136-145)
== END 2021-12-09 10:11 | disposition home or self-care (01) ==
LOC: LABBT 10:10
PROVIDERS: ATTEND Thoracic Surgery (Cardiothoracic Vascular Surgery)
DX: Z01.818 Encounter for other preprocedural examination (principal); Z20.822 Contact with and (suspected) exposure to COVID-19
CPT/HCPCS: 80048; 85027; 86850; 86900; 86901; 86920; 93005; U0003; U0005; 93010

== ENCOUNTER 2021-12-09 12:45 | Inpatient (IN) | payer MEDICARE ==
[2021-12-09 12:11] LABS: Hemoglobin 9.4 g/dL (13.5-17.5); Mean Corpuscular HGB CONC 32.1 g/dL (32.0-36.0); Mean Corpuscular Hemoglobin 32.5 pg (27.0-33.0); Mean Corpuscular Volume 101.4 fl (81.2-95.1); Mean Platelet Volume 9.1 fl (7.4-10.4); Platelet Count 228 10x3/uL (150-450); RBC Distribution Width 15.6 % (11.5-14.5); Red Blood Cell (RBC) Count 2.89 10x6/uL (4.32-5.72); White Blood Cell (WBC) Count 6.5 10x3/uL (3.5-10.5)
[2021-12-09 12:35] LABS: Anion Gap 14 mmol/L (10-20); BUN (Urea Nitrogen) 48 mg/dL (8.4-25.7); Calc. Creatinine Clearance 0 mL/min (70-130); Calcium 8.8 mg/dL (7.8-10.44); Carbon Dioxide 23 mmol/L (23-31); Chloride 106 mmol/L (98-107); Glucose 91 mg/dL (83-110); Potassium 5.3 mmol/L (3.5-5.1); Sodium 138 mmol/L (136-145)
[2021-12-14] MEDS ORDERED: Albumin 5% 500 ML ONE (06:16)
[2021-12-14] MEDS ORDERED: Midazolam HCl 2 mg/2 ml Vial ONE (06:30)
[2021-12-14] MEDS ORDERED: Phenylephrine 10 MG/ML VIAL ONE (06:31)
[2021-12-14] MEDS ORDERED: Insulin Regular 300 UNITS/3 ML VIAL ONE (06:31)
[2021-12-14] MEDS ORDERED: fentaNYL Citrate/PF 100 MCG/2 ML SYRINGE ONE (06:31)
[2021-12-14] MEDS ORDERED: Heparin 10,000 UNITS/1 ML VIAL 30,000 UNITS in Sodium Chloride 0.9% 1,000 ML FS SCH (06:45)
[2021-12-14] MEDS ORDERED: CEFAZOLIN 2 GM VIAL ONE (07:22)
[2021-12-14] MEDS ORDERED: Milrinone 10 MG/10 ML VIAL ONE (07:27)
[2021-12-14] MEDS ORDERED: Thrombin 5000 UNITS/5 ML VIAL ONE (07:33)
[2021-12-14] MEDS ORDERED: PROPOFOL 200 MG/20 ML VIAL ONE (07:33)
[2021-12-14] MEDS ORDERED: Rocuronium Bromide 10 MG/ML (10ML VIAL) ONE (07:33)
[2021-12-14] MEDS ORDERED: Magnesium Sulfate 1 GM/2 ML VIAL ONE (07:33)
[2021-12-14] MEDS ORDERED: Heparin 30,000 units/30 ml VIAL ONE (07:33)
[2021-12-14] MEDS ORDERED: Nitroglycerin 50 MG/250 ML BOT ONE (07:33)
[2021-12-14] MEDS ORDERED: Cardioplegic Soln 1,000 ML BAG ONE (07:33)
[2021-12-14] MEDS ORDERED: Papaverine 60 MG/2 ML VIAL ONE (07:33)
[2021-12-14] MEDS ORDERED: Lidocaine 2% PF 100 mg/5 ml Syringe ONE (07:33)
[2021-12-14] MEDS ORDERED: Sodium Bicarb 50 MEQ/50 ML Abboject 8.4% SYRINGE ONE (07:33)
[2021-12-14] MEDS ORDERED: Aminocaproic Acid 5 GM/20 ML VIAL ONE (07:33)
[2021-12-14] MEDS ORDERED: Calcium Chloride 1 GM/10 ML Abboject SYRINGE ONE (07:33)
[2021-12-14] MEDS ORDERED: Heparin 5,000 UNITS/ML VIAL ONE (07:33)
[2021-12-14] MEDS ORDERED: ePHEDrine 50 MG/ML VIAL ONE (07:33)
[2021-12-14] MEDS ORDERED: Protamine Sulfate 250 MG/25 ML VIAL ONE (07:33)
[2021-12-14] MEDS ORDERED: Mannitol 12.5 GM/50 ML ONE (07:33)
[2021-12-14] MEDS ORDERED: Glycopyrrolate 0.2 MG/ML 5 ML SYRINGE ONE (07:33)
[2021-12-14] MEDS ORDERED: PHENYLEPHRINE-NS 100 MCG/ML 10 ML SYRINGE ONE (08:01)
[2021-12-14] MEDS ORDERED: Nitroglycerin 50 MG/250 ML BOT 250 ML IVPB PRN (10:32)
[2021-12-14] MEDS ORDERED: Bisacodyl 10 MG SUPP PR PRN (10:32)
[2021-12-14] MEDS ORDERED: Morphine 2 MG/ML VIAL SLOW IVP PRN (10:32)
[2021-12-14] MEDS ORDERED: Guaifenesin DM 100-10/5 ML UDCUP PO PRN (10:32)
[2021-12-14] MEDS ORDERED: Post-Op Insulin Drip Protocol IVPB SCH (10:32)
[2021-12-14] MEDS ORDERED: Hetastarch 6% 500 ML 500 ML IVPB PRN (10:32)
[2021-12-14] MEDS ORDERED: Bisacodyl 5 MG TAB PO PRN (10:32)
[2021-12-14] MEDS ORDERED: Fentanyl 100 MCG/2 ML VIAL SLOW IVP PRN (10:32)
[2021-12-14] MEDS ORDERED: Mag-Al 1200 mg/1200 mg/30 ML UDCUP PO PRN (10:32)
[2021-12-14] MEDS ORDERED: niCARdipine 25 MG in Sodium Chloride 0.9% 250 ML 250 ML IVPB PRN (10:32)
[2021-12-14] MEDS ORDERED: traMADol HCl 50 MG TAB PO PRN (10:32)
[2021-12-14] MEDS ORDERED: Norepinephrine 8 MG/0.9% NS 250 ML IVPB PRN (10:32)
[2021-12-14] MEDS ORDERED: ceFAZolin 2 GM/Dextrose 50 ML 2 GM in Premix Bag 1 BAG IVPB SCH (10:45)
[2021-12-14 10:58] LABS: #Basophils 0.1 thou/uL (0.0-0.2); #Eosinphils 0.2 thou/uL (0.0-0.7); #Lymphocytes 1.2 thou/uL (1.20-3.40); #Monocytes 0.8 thou/uL (0.11-0.59); #Neutrophils 7.8 thou/uL (1.40-6.50); %Basophils 0.5 % (0.0-1.0); %Eosinophils 1.9 % (0.0-10.0); %Lymphocytes 11.9 % (21.0-51.0); %Monocytes 8.1 % (0.0-10.0); %Neutrophils 77.6 % (42.0-75.0); Hemoglobin 9.5 g/dL (14.0-18.0); Mean Corpuscular Hemoglobin 32.9 pg (27.0-31.0); Mean Platelet Volume 6.3 fL (7.4-10.4); Platelet Count 157 thou/uL (130-400); Red Blood Cell (RBC) Count 2.89 mill/uL (4.70-6.10); White Blood Cell (WBC) Count 10.1 thou/uL (4.8-10.8)
[2021-12-14] MEDS: Ondansetron PF 4 MG/2 ML Vial IVP PRN ×2 (11:12→17:56)
[2021-12-14] MEDS: Sodium Chloride 0.9% 1,000 ML IV SCH ×2 (11:13→19:59)
[2021-12-14] MEDS: hydrALAZINE 20 MG/ML VIAL SLOW IVP PRN ×2 (11:16→19:53)
[2021-12-14 11:17] LABS: Anion Gap 12 mmol/L (10-20); BUN (Urea Nitrogen) 40 mg/dL (8.4-25.7); Calc. Creatinine Clearance 28 mL/min (70-130); Calcium 7.6 mg/dL (7.8-10.44); Carbon Dioxide 22 mmol/L (23-31); Chloride 110 mmol/L (98-107); Glucose 102 mg/dL (83-110); Potassium 5.5 mmol/L (3.5-5.1); Sodium 138 mmol/L (136-145)
[2021-12-14 11:19] LABS: INR-International Normal Ratio 1.5; PTT 47.4 sec (22.9-36.1)
[2021-12-14 11:24] LABS: Actual Bicarbonate (HCO3a) 21.9 mEq/L (22-28); Base Excess (BEa) -3.7 mEq/L (-2.0 to +3.0); CO2 Tension 42.1 mmHg (35.0-45.0); Calcium, Ionized (arterial) 1.06 mmol/L (1.12-1.30); Carboxyhemoglobin (COHb) 0.3 gm% (0.0-3.0); Hemoglobin (Hb) 9.1 g/dL (14.0-18.0); O2 Tension (PaO2), arterial 133.8 mmHg (> 60.0); Potassium - ABG Lab 4.94 mmol/L (3.70-5.30); pH, Arterial 7.34 (7.35-7.45)
[2021-12-14 11:26] LABS: ALV-art Gradient 170.075 mmHg (0-20); Puncture Site Arterial Line
[2021-12-14] MEDS: DOPamine 400 MG/D5W 250 ML 250 ML IVPB PRN (12:49)
[2021-12-14] MEDS: CEFAZOLIN 2 GM in Sodium Chloride 0.9% 100 ML IVPB SCH ×2 (13:29→21:32)
[2021-12-14] MEDS: Sodium Bicarbonate Tab 325 MG TAB PO SCH ×2 (15:16→20:13)
[2021-12-14] MEDS ORDERED: Dextrose 5% in Water 1,000 ML IV PRN (15:30)
[2021-12-14] MEDS ORDERED: Insulin Regular 300 UNITS/3 ML VIAL SC PRN (15:30)
[2021-12-14] MEDS ORDERED: HUMULIN R 100 UNITS in Sodium Chloride 0.9% 100 ML IVPB SCH (15:30)
[2021-12-14] MEDS ORDERED: Dextrose 50% Abboject 50 ML SYRINGE SLOW IVP PRN (15:30)
[2021-12-14 16:41] LABS: Actual Bicarbonate (HCO3a) 18.3 mEq/L (22-28); Base Excess (BEa) -6.7 mEq/L (-2.0 to +3.0); Calcium, Ionized (arterial) 1.14 mmol/L (1.12-1.30); Carboxyhemoglobin (COHb) 0.3 gm% (0.0-3.0); Hemoglobin (Hb) 11.9 g/dL (14.0-18.0); O2 Tension (PaO2), arterial 124.2 mmHg (> 60.0); Potassium - ABG Lab 4.95 mmol/L (3.70-5.30); pH, Arterial 7.34 (7.35-7.45)
[2021-12-14 16:42] LABS: Puncture Site Arterial Line
[2021-12-14 16:51] LABS: Hemoglobin 11.2 g/dL (14.0-18.0)
[2021-12-14 16:53] LABS: Potassium 4.9 mmol/L (3.5-5.1)
[2021-12-14] MEDS: Fentanyl 100 MCG/2 ML VIAL SLOW IVP PRN (20:24)
[2021-12-14] MEDS ORDERED: Famotidine/PF 20 mg/2ml Vial SLOW IVP SCH (21:00)
[2021-12-14] MEDS ORDERED: Atorvastatin Calcium 10 MG TAB PO SCH (21:00)
[2021-12-14] MEDS ORDERED: Simvastatin 20 MG TAB PO SCH (21:00)
[2021-12-15 04:12] LABS: #Lymphocytes 0.6 thou/uL (1.20-3.40); #Monocytes 0.7 thou/uL (0.11-0.59); #Neutrophils 8.4 thou/uL (1.40-6.50); %Lymphocytes 5.8 % (21.0-51.0); %Monocytes 7.5 % (0.0-10.0); %Neutrophils 86.7 % (42.0-75.0); Hemoglobin 9.9 g/dL (14.0-18.0); Mean Corpuscular HGB CONC 32.3 g/dL (32.0-36.0); Mean Corpuscular Hemoglobin 33.4 pg (27.0-31.0); Mean Platelet Volume 6.4 fL (7.4-10.4); Platelet Count 177 thou/uL (130-400); RBC Distribution Width 17.6 % (11.5-14.5); Red Blood Cell (RBC) Count 2.96 mill/uL (4.70-6.10); White Blood Cell (WBC) Count 9.7 thou/uL (4.8-10.8)
[2021-12-15 04:31] LABS: Anion Gap 15 mmol/L (10-20); BUN (Urea Nitrogen) 41 mg/dL (8.4-25.7); Calc. Creatinine Clearance 27 mL/min (70-130); Calcium 7.8 mg/dL (7.8-10.44); Carbon Dioxide 19 mmol/L (23-31); Chloride 112 mmol/L (98-107); Glucose 164 mg/dL (83-110); Potassium 4.7 mmol/L (3.5-5.1); Sodium 141 mmol/L (136-145)
[2021-12-15] MEDS: CEFAZOLIN 2 GM in Sodium Chloride 0.9% 100 ML IVPB SCH (05:47)
[2021-12-15] MEDS: Fentanyl 100 MCG/2 ML VIAL SLOW IVP PRN ×2 (05:48→18:12)
[2021-12-15] MEDS ORDERED: Sodium Chloride 0.45% 1,000 ML IV SCH (07:00)
[2021-12-15] MEDS ORDERED: Sodium Chloride 0.45% 500 ML IV SCH (07:00)
[2021-12-15] MEDS ORDERED: Atorvastatin Calcium 10 MG TAB PO SCH (07:00)
[2021-12-15] MEDS: Sodium Chloride 0.9% 1,000 ML IV SCH (07:16)
[2021-12-15] MEDS: Aspirin Chewable 81 MG TAB PO SCH (08:49)
[2021-12-15] MEDS: Sodium Bicarbonate Tab 325 MG TAB PO SCH ×3 (08:51→20:36)
[2021-12-15] MEDS: DOPamine 400 MG/D5W 250 ML 250 ML IVPB PRN (11:45)
[2021-12-15] MEDS ORDERED: Insulin Glargine 30 UNITS/0.3 ML VIAL SC PRN (15:28)
[2021-12-15] MEDS ORDERED: Atorvastatin Calcium 20 MG TAB PO SCH (21:00)
[2021-12-16 04:24] LABS: #Lymphocytes 0.9 thou/uL (1.20-3.40); #Neutrophils 8.8 thou/uL (1.40-6.50); %Basophils 0.2 % (0.0-1.0); %Eosinophils 0.3 % (0.0-10.0); %Lymphocytes 8.1 % (21.0-51.0); %Monocytes 9.4 % (0.0-10.0); Hemoglobin 9.2 g/dL (14.0-18.0); Mean Corpuscular HGB CONC 32.2 g/dL (32.0-36.0); Mean Corpuscular Hemoglobin 33.2 pg (27.0-31.0); Mean Platelet Volume 6.6 fL (7.4-10.4); Platelet Count 159 thou/uL (130-400); RBC Distribution Width 17.3 % (11.5-14.5); Red Blood Cell (RBC) Count 2.76 mill/uL (4.70-6.10); White Blood Cell (WBC) Count 10.7 thou/uL (4.8-10.8)
[2021-12-16 04:50] LABS: Anion Gap 12 mmol/L (10-20); BUN (Urea Nitrogen) 37 mg/dL (8.4-25.7); Calc. Creatinine Clearance 32 mL/min (70-130); Calcium 8.3 mg/dL (7.8-10.44); Carbon Dioxide 21 mmol/L (23-31); Chloride 108 mmol/L (98-107); Glucose 129 mg/dL (83-110); Potassium 4.4 mmol/L (3.5-5.1); Sodium 137 mmol/L (136-145)
[2021-12-16 05:34] VITALS: BMI 24.4
[2021-12-16] MEDS: Aspirin Chewable 81 MG TAB PO SCH (09:50)
[2021-12-16] MEDS: Carvedilol 3.125 MG TAB PO SCH ×2 (09:51→18:12)
[2021-12-16] MEDS: Sodium Bicarbonate Tab 325 MG TAB PO SCH ×3 (09:53→20:22)
[2021-12-16] MEDS ORDERED: Mineral Oil ENEMA PR PRN (10:03)
[2021-12-16] MEDS ORDERED: Nitroglycerin 0.4 MG TAB (25 Tab Bottle) SL PRN (10:03)
[2021-12-16] MEDS ORDERED: Metoprolol Tartrate 25 MG TAB PO SCH (10:03)
[2021-12-16] MEDS: traMADol HCl 50 MG TAB PO PRN (18:16)
[2021-12-16] MEDS: Atorvastatin Calcium 40 MG TAB PO SCH (20:22)
[2021-12-16] MEDS: Famotidine 20 MG TAB PO SCH (20:22)
[2021-12-17 04:59] LABS: Anion Gap 12 mmol/L (10-20); BUN (Urea Nitrogen) 31 mg/dL (8.4-25.7); Calc. Creatinine Clearance 40 mL/min (70-130); Carbon Dioxide 20 mmol/L (23-31); Chloride 107 mmol/L (98-107); Glucose 100 mg/dL (83-110); Sodium 135 mmol/L (136-145)
[2021-12-17] MEDS: Carvedilol 3.125 MG TAB PO SCH ×2 (10:15→17:05)
[2021-12-17] MEDS: Aspirin Chewable 81 MG TAB PO SCH (10:15)
[2021-12-17] MEDS: Sodium Bicarbonate Tab 325 MG TAB PO SCH ×3 (10:15→20:24)
[2021-12-17] MEDS: Furosemide 40 MG TAB PO SCH (10:15)
[2021-12-17] MEDS: Acetaminophen 325 MG TAB PO PRN ×2 (10:15→23:31)
[2021-12-17] MEDS: Famotidine 20 MG TAB PO SCH (20:25)
[2021-12-17] MEDS: Atorvastatin Calcium 40 MG TAB PO SCH (20:25)
[2021-12-18] MEDS: Furosemide 40 MG TAB PO SCH (06:32)
[2021-12-18] MEDS: Aspirin Chewable 81 MG TAB PO SCH (09:59)
[2021-12-18] MEDS: Carvedilol 3.125 MG TAB PO SCH ×2 (09:59→16:26)
[2021-12-18] MEDS: Sodium Bicarbonate Tab 325 MG TAB PO SCH ×3 (09:59→20:40)
[2021-12-18] MEDS: Atorvastatin Calcium 40 MG TAB PO SCH (20:40)
[2021-12-18] MEDS: Famotidine 20 MG TAB PO SCH (20:40)
[2021-12-19] MEDS: traMADol HCl 50 MG TAB PO PRN (03:26)
[2021-12-19] MEDS: Carvedilol 3.125 MG TAB PO SCH ×2 (10:45→17:10)
[2021-12-19] MEDS: Sodium Bicarbonate Tab 325 MG TAB PO SCH ×3 (10:45→20:41)
[2021-12-19] MEDS: Furosemide 40 MG TAB PO SCH (10:45)
[2021-12-19] MEDS: Aspirin Chewable 81 MG TAB PO SCH (10:46)
[2021-12-19] MEDS: Atorvastatin Calcium 40 MG TAB PO SCH (20:41)
[2021-12-19] MEDS: Famotidine 20 MG TAB PO SCH (20:41)
[2021-12-20 08:32] VITALS: TEMP 97.7
[2021-12-20] MEDS: Carvedilol 3.125 MG TAB PO SCH (10:51)
[2021-12-20] MEDS: Aspirin Chewable 81 MG TAB PO SCH (10:51)
[2021-12-20] MEDS: Sodium Bicarbonate Tab 325 MG TAB PO SCH (10:51)
[2021-12-20] MEDS: Furosemide 40 MG TAB PO SCH (10:51)
[2021-12-20 12:05] VITALS: BP 134/59
== END 2021-12-20 13:59 | disposition home health service (06) | DRG 236 ==
LOC: SURG A 12-14 05:43 → CCU 12-14 09:52 → 2NO 12-16 18:51
PROVIDERS: ADMIT Thoracic Surgery (Cardiothoracic Vascular Surgery); ATTEND Thoracic Surgery (Cardiothoracic Vascular Surgery)
PROC: 021309W Bypass Coronary Artery, Four or More Arteries from Aorta with Autologous Venous Tissue, Open Approach (ICD-10-PCS; principal; 2021-12-14)
PROC: 02100Z9 Bypass Coronary Artery, One Artery from Left Internal Mammary, Open Approach (ICD-10-PCS; 2021-12-14)
PROC: 06BQ4ZZ Excision of Left Saphenous Vein, Percutaneous Endoscopic Approach (ICD-10-PCS; 2021-12-14)
PROC: 5A1221Z Performance of Cardiac Output, Continuous (ICD-10-PCS; 2021-12-14)
PROC: 02L70CK Occlusion of Left Atrial Appendage with Extraluminal Device, Open Approach (ICD-10-PCS; 2021-12-14)
PROC: 30233N1 Transfusion of Nonautologous Red Blood Cells into Peripheral Vein, Percutaneous Approach (ICD-10-PCS; 2021-12-14)
DX: I25.10 Atherosclerotic heart disease of native coronary artery without angina pectoris (principal); N17.9 Acute kidney failure, unspecified; J90 Pleural effusion, not elsewhere classified; I47.1 Supraventricular tachycardia; E78.5 Hyperlipidemia, unspecified; N18.9 Chronic kidney disease, unspecified; R53.81 Other malaise; E87.8 Other disorders of electrolyte and fluid balance, not elsewhere classified; J44.9 Chronic obstructive pulmonary disease, unspecified; I34.0 Nonrheumatic mitral (valve) insufficiency; E11.22 Type 2 diabetes mellitus with diabetic chronic kidney disease; Z20.822 Contact with and (suspected) exposure to COVID-19; I25.5 Ischemic cardiomyopathy; Z79.82 Long term (current) use of aspirin; Z87.01 Personal history of pneumonia (recurrent); Z79.899 Other long term (current) drug therapy; Z85.6 Personal history of leukemia
CPT/HCPCS: 36415; 36416; 36430; 71045; 80048; 82805; 85025; 85027; 85610; 85730; 86850; 86900; 86901; 93005; 93010; 93798; 94002; 94640; 97139; C1751; C1776; J0360; J0690; J1265; J1642; J1644; J1815; J2001; J2150; J2250; J2260; J2270; J2370; J2405; J2440; J2704; J2720; J3010; J3370; J3475; J3480; J3490; J7050; J7620; P9016; P9045; S0017; S0028; U0003; U0005

== ENCOUNTER 2023-08-23 13:32 | Outpatient (CLI) | payer MEDICARE | END 2023-08-23 13:33 | disposition home or self-care (01) | LOC: RAD 13:32 | PROVIDERS: ATTEND Thoracic Surgery (Cardiothoracic Vascular Surgery) | DX: C34.11 Malignant neoplasm of upper lobe, right bronchus or lung (principal); J98.4 Other disorders of lung; Z98.890 Other specified postprocedural states | CPT/HCPCS: 71046 ==

== ENCOUNTER 2024-07-03 23:58 | Inpatient (IN) | payer OTHER ==
[2024-07-04 01:40] VITALS: BMI 25.0
[2024-07-04] MEDS ORDERED: Ondansetron ODT 4 MG TAB PO PRN (02:12)
[2024-07-04] MEDS ORDERED: Ondansetron PF 4 MG/2 ML Vial IVP PRN (02:12)
[2024-07-04] MEDS ORDERED: Insulin Lispro 100 UNIT/ML 10 ML VIAL SC PRN ×2 (02:12)
[2024-07-04] MEDS ORDERED: Dextrose 5% in Water 1,000 ML IV PRN (02:12)
[2024-07-04] MEDS ORDERED: Glucagon 1 MG/ML KIT IM PRN (02:12)
[2024-07-04] MEDS ORDERED: Dextrose 50% Abboject 50 ML SYRINGE SLOW IVP PRN (02:12)
[2024-07-04] MEDS ORDERED: Ipratropium/Albuterol 3 ML NEB NEB PRN (02:46)
[2024-07-04] MEDS ORDERED: LevoFLOXacin 750 mg/D5W 750 MG in Premix 1 BAG IVPB SCH (03:00)
[2024-07-04] MEDS: Lactated Ringer's 1,000 ML IV SCH (03:03)
[2024-07-04] MEDS: metroNIDAZOLE 500 MG in Premix 1 BAG IVPB SCH (05:45)
[2024-07-04 06:17] LABS: #Basophils 0.04 10x3/uL (0.0-0.2); %Basophils 0.7 % (0.0-1.0); %Eosinophils 5.1 % (0.0-10.0); %Lymphocytes 13.6 % (21.0-51.0); %Monocytes 6.9 % (0.0-10.0); %Neutrophils 73.3 % (42.0-75.0); Hematocrit 22.3 % (42.0-52.0); Hemoglobin 7.1 g/dL (14.0-18.0); Mean Corpuscular HGB CONC 31.8 g/dL (32.0-36.0); Mean Corpuscular Hemoglobin 31.3 pg (27.0-31.0); Mean Corpuscular Volume 98.2 fL (78.0-98.0); Mean Platelet Volume 8.6 fL (7.4-10.4); Platelet Count 277 10x3/uL (130-400); RBC Distribution Width 14.6 % (11.5-14.5); Red Blood Cell (RBC) Count 2.27 mill/uL (4.70-6.10)
[2024-07-04 06:31] LABS: Calc. Creatinine Clearance 16 mL/min (70-130); Estimated GFR 18
[2024-07-04 06:32] LABS: Iron 35 ug/dL (65-175); Iron Binding Capacity, Total 174 mcg/dL (261-462)
[2024-07-04 06:33] LABS: ALT (SGPT) 15 U/L (8-55); AST (SGOT) 15 U/L (5-34); Albumin 2.4 g/dL (3.4-4.8); Alkaline Phosphatase 89 U/L (40-110); Anion Gap 13 mmol/L (10-20); BUN (Urea Nitrogen) 38 mg/dL (8.4-25.7); Bilirubin, Total 0.2 mg/dL (0.2-1.2); Calcium 7.9 mg/dL (7.8-10.44); Carbon Dioxide 17 mmol/L (23-31); Chloride 112 mmol/L (98-107); Globulin 3.6 g/dL (2.4-3.5); Glucose 87 mg/dL (83-110); Iron 30 ug/dL (65-175); Iron Binding Capacity, Total 173 mcg/dL (261-462); Potassium 4.5 mmol/L (3.5-5.1); Sodium 137 mmol/L (136-145)
[2024-07-04 06:59] LABS: Ferritin 68.33 ng/mL (22-322)
[2024-07-04] MEDS: Acetaminophen 325 MG TAB PO PRN (08:49)
[2024-07-04] MEDS: Pantoprazole 40 MG VIAL IVP SCH (08:49)
[2024-07-04 10:18] LABS: Legionella Urinary Ag Negative (Negative); Strep pneumo Urine Ag NEGATIVE (NEGATIVE)
[2024-07-04] MEDS: GoLYTELY 4,000 ml Bottle PO SCH (17:28)
[2024-07-04] MEDS: LevoFLOXacin 750 mg/D5W 750 MG in Premix 1 BAG IVPB SCH (20:05)
[2024-07-04] MEDS: Atorvastatin Calcium 40 MG TAB PO SCH (20:06)
[2024-07-04] MEDS: hydrALAZINE 20 MG/ML VIAL SLOW IVP PRN (21:17)
[2024-07-05 05:38] LABS: #Basophils 0.03 10x3/uL (0.0-0.2); %Basophils 0.5 % (0.0-1.0); %Eosinophils 2.3 % (0.0-10.0); %Lymphocytes 7.6 % (21.0-51.0); %Monocytes 6.3 % (0.0-10.0); %Neutrophils 82.5 % (42.0-75.0); Hematocrit 28.3 % (42.0-52.0); Hemoglobin 9.3 g/dL (14.0-18.0); Mean Corpuscular HGB CONC 32.9 g/dL (32.0-36.0); Mean Corpuscular Hemoglobin 31.8 pg (27.0-31.0); Mean Corpuscular Volume 96.9 fL (78.0-98.0); Mean Platelet Volume 8.5 fL (7.4-10.4); Platelet Count 311 10x3/uL (130-400); RBC Distribution Width 14.8 % (11.5-14.5); Red Blood Cell (RBC) Count 2.92 mill/uL (4.70-6.10)
[2024-07-05 05:54] LABS: Anion Gap 16 mmol/L (10-20); BUN (Urea Nitrogen) 29 mg/dL (8.4-25.7); Calc. Creatinine Clearance 18 mL/min (70-130); Calcium 8.5 mg/dL (7.8-10.44); Carbon Dioxide 17 mmol/L (23-31); Chloride 111 mmol/L (98-107); Estimated GFR 20; Glucose 91 mg/dL (83-110); Potassium 4.4 mmol/L (3.5-5.1); Sodium 140 mmol/L (136-145)
[2024-07-05] MEDS ORDERED: PROPOFOL 20 ML ONE ×2 (08:28→09:28)
[2024-07-05] MEDS ORDERED: Sodium Chloride 0.9% 250 ML 250 ML ONE (08:42)
[2024-07-05] MEDS ORDERED: PROPOFOL 200 MG/20 ML VIAL ONE (08:45)
[2024-07-05] MEDS ORDERED: Lidocaine 1% PF 5 ML VIAL ONE (08:45)
[2024-07-06] MEDS ORDERED: LevoFLOXacin 500 mg/D5W 500 MG in Premix 1 BAG IVPB SCH ×2 (04:00→21:00)
[2024-07-06 05:48] LABS: #Basophils 0.04 10x3/uL (0.0-0.2); %Basophils 0.8 % (0.0-1.0); %Eosinophils 3.7 % (0.0-10.0); %Lymphocytes 12.5 % (21.0-51.0); %Monocytes 8.2 % (0.0-10.0); %Neutrophils 74.6 % (42.0-75.0); Hematocrit 25.3 % (42.0-52.0); Hemoglobin 8.2 g/dL (14.0-18.0); Mean Corpuscular HGB CONC 32.4 g/dL (32.0-36.0); Mean Corpuscular Hemoglobin 30.8 pg (27.0-31.0); Mean Corpuscular Volume 95.1 fL (78.0-98.0); Mean Platelet Volume 8.8 fL (7.4-10.4); Platelet Count 291 10x3/uL (130-400); RBC Distribution Width 14.7 % (11.5-14.5); Red Blood Cell (RBC) Count 2.66 mill/uL (4.70-6.10)
[2024-07-06 06:47] LABS: Anion Gap 14 mmol/L (10-20); BUN (Urea Nitrogen) 27 mg/dL (8.4-25.7); Calc. Creatinine Clearance 18 mL/min (70-130); Calcium 8.1 mg/dL (7.8-10.44); Carbon Dioxide 16 mmol/L (23-31); Chloride 110 mmol/L (98-107); Estimated GFR 21; Glucose 83 mg/dL (83-110); Potassium 4.1 mmol/L (3.5-5.1); Sodium 136 mmol/L (136-145)
[2024-07-06] MEDS: hydrALAZINE 25 MG TAB PO SCH (09:03)
[2024-07-06 11:39] VITALS: BP 139/74; TEMP 97.4
[2024-07-06] MEDS ORDERED: Carvedilol 3.125 MG TAB PO SCH (17:00)
== END 2024-07-06 14:54 | disposition home or self-care (01) | DRG 377 ==
LOC: INTOOBSV 07-04 00:48 → SURG B 07-04 00:48 → OBSVTOIN 07-04 16:38
PROVIDERS: ADMIT Student in an Organized Health Care Education/Training Program; ATTEND Internal Medicine
PROC: 0DB98ZX Excision of Duodenum, Via Natural or Artificial Opening Endoscopic, Diagnostic (ICD-10-PCS; principal; 2024-07-04)
PROC: 0DBK8ZZ Excision of Ascending Colon, Via Natural or Artificial Opening Endoscopic (ICD-10-PCS; 2024-07-04)
PROC: 0DBN8ZZ Excision of Sigmoid Colon, Via Natural or Artificial Opening Endoscopic (ICD-10-PCS; 2024-07-04)
DX: K57.31 Diverticulosis of large intestine without perforation or abscess with bleeding (principal); J18.9 Pneumonia, unspecified organism; C95.90 Leukemia, unspecified not having achieved remission; I13.0 Hypertensive heart and chronic kidney disease with heart failure and stage 1 through stage 4 chronic kidney disease, or unspecified chronic kidney disease; I50.22 Chronic systolic (congestive) heart failure; N18.4 Chronic kidney disease, stage 4 (severe); J44.0 Chronic obstructive pulmonary disease with (acute) lower respiratory infection; N17.9 Acute kidney failure, unspecified; K22.70 Barrett's esophagus without dysplasia; E11.22 Type 2 diabetes mellitus with diabetic chronic kidney disease; E78.5 Hyperlipidemia, unspecified; D63.1 Anemia in chronic kidney disease; K64.4 Residual hemorrhoidal skin tags; K64.8 Other hemorrhoids; Z79.899 Other long term (current) drug therapy; F17.210 Nicotine dependence, cigarettes, uncomplicated
CPT/HCPCS: 36415; 36416; 36430; 80048; 80053; 82607; 82728; 83540; 83550; 84145; 85025; 86850; 86900; 86901; 87449; 87899; 88305; 88321; 88341; 88342; 96374; 96375; C1889; G0378; J0360; J1956; J2470; J2704; J7050; J7120; P9016

== ENCOUNTER 2024-07-18 19:24 | Inpatient (IN) | payer OTHER ==
[2024-07-18] MEDS ORDERED: Acetaminophen 325 MG TAB PO PRN (21:02)
[2024-07-18] MEDS ORDERED: Calcium Carbonate 500 MG ChewTAB PO PRN (21:02)
[2024-07-18] MEDS ORDERED: Acetaminophen 650 MG Suppository PR PRN (21:02)
[2024-07-18] MEDS ORDERED: Ondansetron PF 4 MG/2 ML Vial IVP PRN (21:02)
[2024-07-18] MEDS ORDERED: Ondansetron ODT 4 MG TAB PO PRN (21:02)
[2024-07-18 21:10] VITALS: BMI 24.3
[2024-07-18] MEDS: Sodium Bicarbonate Tab 325 MG TAB PO SCH (22:16)
[2024-07-18 23:08] LABS: #Basophils 0.04 10x3/uL (0.0-0.2); %Basophils 0.7 % (0.0-1.0); %Eosinophils 1.5 % (0.0-10.0); %Lymphocytes 12.7 % (21.0-51.0); %Monocytes 13.6 % (0.0-10.0); %Neutrophils 70.9 % (42.0-75.0); Hemoglobin 7.7 g/dL (14.0-18.0); Mean Corpuscular HGB CONC 32.1 g/dL (32.0-36.0); Mean Corpuscular Hemoglobin 31.6 pg (27.0-31.0); Mean Corpuscular Volume 98.4 fL (78.0-98.0); Platelet Count 235 10x3/uL (130-400); RBC Distribution Width 14.5 % (11.5-14.5); Red Blood Cell (RBC) Count 2.44 mill/uL (4.70-6.10)
[2024-07-18 23:32] LABS: Anion Gap 14 mmol/L (10-20); BUN (Urea Nitrogen) 43 mg/dL (8.4-25.7); Calc. Creatinine Clearance 14 mL/min (70-130); Calcium 8.2 mg/dL (7.8-10.44); Carbon Dioxide 18 mmol/L (23-31); Chloride 109 mmol/L (98-107); Estimated GFR 16; Glucose 101 mg/dL (83-110); Potassium 5.2 mmol/L (3.5-5.1); Sodium 136 mmol/L (136-145)
[2024-07-19] MEDS ORDERED: Ipratropium/Albuterol 3 ML NEB NEB PRN (01:16)
[2024-07-19 04:48] LABS: #Basophils 0.04 10x3/uL (0.0-0.2); %Basophils 0.7 % (0.0-1.0); %Eosinophils 3.1 % (0.0-10.0); %Lymphocytes 13.8 % (21.0-51.0); %Monocytes 12.7 % (0.0-10.0); %Neutrophils 69.3 % (42.0-75.0); Hematocrit 23.4 % (42.0-52.0); Hemoglobin 7.6 g/dL (14.0-18.0); Mean Corpuscular HGB CONC 32.5 g/dL (32.0-36.0); Mean Corpuscular Hemoglobin 31.3 pg (27.0-31.0); Mean Corpuscular Volume 96.3 fL (78.0-98.0); Mean Platelet Volume 9.1 fL (7.4-10.4); Platelet Count 230 10x3/uL (130-400); RBC Distribution Width 14.6 % (11.5-14.5); Red Blood Cell (RBC) Count 2.43 mill/uL (4.70-6.10)
[2024-07-19 05:12] LABS: Hemoglobin A1c 5.1 % (4.0-6.0)
[2024-07-19 05:15] LABS: Anion Gap 16 mmol/L (10-20); BUN (Urea Nitrogen) 42 mg/dL (8.4-25.7); Calc. Creatinine Clearance 14 mL/min (70-130); Calcium 8.2 mg/dL (7.8-10.44); Carbon Dioxide 17 mmol/L (23-31); Chloride 110 mmol/L (98-107); Estimated GFR 16; Glucose 94 mg/dL (83-110); Potassium 4.7 mmol/L (3.5-5.1); Sodium 138 mmol/L (136-145)
[2024-07-19] MEDS: Pantoprazole 40 MG DR.TAB PO SCH (08:54)
[2024-07-19] MEDS: Dapagliflozin Propanediol 10 MG TAB PO SCH (08:54)
[2024-07-19] MEDS: Isosorbide Dinitrate 20 MG TAB PO SCH (08:54)
[2024-07-19] MEDS: Carvedilol 3.125 MG TAB PO SCH (08:55)
[2024-07-19] MEDS: hydrALAZINE 25 MG TAB PO SCH (10:52)
[2024-07-19] MEDS: GoLYTELY 4,000 ml Bottle PO SCH (18:36)
[2024-07-19] MEDS: Atorvastatin Calcium 40 MG TAB PO SCH (20:11)
[2024-07-20 05:20] LABS: #Basophils 0.04 10x3/uL (0.0-0.2); %Basophils 0.8 % (0.0-1.0); %Eosinophils 4.8 % (0.0-10.0); %Lymphocytes 16.4 % (21.0-51.0); %Monocytes 13.9 % (0.0-10.0); %Neutrophils 63.9 % (42.0-75.0); Hematocrit 19.8 % (42.0-52.0); Hemoglobin 6.5 g/dL (14.0-18.0); Mean Corpuscular HGB CONC 32.8 g/dL (32.0-36.0); Mean Corpuscular Hemoglobin 31.4 pg (27.0-31.0); Mean Corpuscular Volume 95.7 fL (78.0-98.0); Mean Platelet Volume 9.1 fL (7.4-10.4); Platelet Count 230 10x3/uL (130-400); RBC Distribution Width 14.6 % (11.5-14.5); Red Blood Cell (RBC) Count 2.07 mill/uL (4.70-6.10)
[2024-07-20 05:41] LABS: Anion Gap 14 mmol/L (10-20); BUN (Urea Nitrogen) 43 mg/dL (8.4-25.7); Calc. Creatinine Clearance 15 mL/min (70-130); Calcium 7.7 mg/dL (7.8-10.44); Carbon Dioxide 19 mmol/L (23-31); Chloride 107 mmol/L (98-107); Estimated GFR 17; Glucose 81 mg/dL (83-110); Potassium 4.2 mmol/L (3.5-5.1); Sodium 136 mmol/L (136-145)
[2024-07-20] MEDS ORDERED: Ondansetron HCl/PF 4 MG/2 ML Vial IVP PRN (09:50)
[2024-07-20] MEDS ORDERED: Promethazine HCl 25 MG/ML VIAL IM PRN (09:50)
[2024-07-20] MEDS ORDERED: PROPOFOL 40 ML ONE (09:55)
[2024-07-20] MEDS ORDERED: fentaNYL 50 mcg/mL 1 mL Vial ONE (09:56)
[2024-07-20] MEDS ORDERED: Glycopyrrolate 0.2 MG/ML 5 ML SYRINGE ONE (10:00)
[2024-07-20] MEDS ORDERED: Lidocaine 2% PF 5 ML VIAL ONE (10:01)
[2024-07-20] MEDS ORDERED: PHENYLEPHRINE-NS 100 MCG/ML 10 ML SYRINGE ONE ×2 (10:05→10:29)
[2024-07-20] MEDS ORDERED: Calcium Chloride 1 GM/10 ML Abboject SYRINGE ONE (10:23)
[2024-07-20 17:50] LABS: Hematocrit 26.4 % (42.0-52.0); Hemoglobin 8.7 g/dL (14.0-18.0)
[2024-07-21 06:36] LABS: #Basophils 0.03 10x3/uL (0.0-0.2); %Basophils 0.6 % (0.0-1.0); %Eosinophils 4.6 % (0.0-10.0); %Lymphocytes 17.9 % (21.0-51.0); %Monocytes 12.5 % (0.0-10.0); Hematocrit 22.6 % (42.0-52.0); Hemoglobin 7.3 g/dL (14.0-18.0); Mean Corpuscular HGB CONC 32.3 g/dL (32.0-36.0); Mean Corpuscular Hemoglobin 31.1 pg (27.0-31.0); Mean Corpuscular Volume 96.2 fL (78.0-98.0); Mean Platelet Volume 9.2 fL (7.4-10.4); Platelet Count 234 10x3/uL (130-400); Red Blood Cell (RBC) Count 2.35 mill/uL (4.70-6.10)
[2024-07-21 07:06] LABS: Anion Gap 12 mmol/L (10-20); BUN (Urea Nitrogen) 41 mg/dL (8.4-25.7); Calc. Creatinine Clearance 16 mL/min (70-130); Carbon Dioxide 19 mmol/L (23-31); Chloride 108 mmol/L (98-107); Potassium 4.3 mmol/L (3.5-5.1); Sodium 135 mmol/L (136-145)
[2024-07-21 07:07] LABS: Calcium 7.8 mg/dL (7.8-10.44); Estimated GFR 18; Glucose 105 mg/dL (83-110)
[2024-07-21] MEDS: FLU (Fluad Triv) TS24-25 (65UP)/MF59C/PF 45 MCG/0.5 ML Syringe IM ONE (14:58)
[2024-07-21 15:18] LABS: Hematocrit 27.9 % (42.0-52.0); Hemoglobin 9.3 g/dL (14.0-18.0)
[2024-07-22 08:24] LABS: #Basophils 0.04 10x3/uL (0.0-0.2); %Basophils 0.8 % (0.0-1.0); %Lymphocytes 8.8 % (21.0-51.0); %Neutrophils 75.2 % (42.0-75.0); Hemoglobin 10.8 g/dL (14.0-18.0); Mean Corpuscular HGB CONC 32.7 g/dL (32.0-36.0); Mean Corpuscular Hemoglobin 30.6 pg (27.0-31.0); Mean Corpuscular Volume 93.5 fL (78.0-98.0); Mean Platelet Volume 8.9 fL (7.4-10.4); Platelet Count 248 10x3/uL (130-400); RBC Distribution Width 16.2 % (11.5-14.5); Red Blood Cell (RBC) Count 3.53 mill/uL (4.70-6.10)
[2024-07-22 08:37] LABS: Anion Gap 14 mmol/L (10-20); BUN (Urea Nitrogen) 35 mg/dL (8.4-25.7); Calc. Creatinine Clearance 17 mL/min (70-130); Calcium 8.5 mg/dL (7.8-10.44); Carbon Dioxide 17 mmol/L (23-31); Chloride 108 mmol/L (98-107); Estimated GFR 20; Glucose 93 mg/dL (83-110); Potassium 4.3 mmol/L (3.5-5.1); Sodium 135 mmol/L (136-145)
[2024-07-22 11:51] VITALS: TEMP 98.2
[2024-07-22 15:50] VITALS: BP 135/67
== END 2024-07-22 17:51 | disposition home or self-care (01) | DRG 920 ==
LOC: 2NO 19:27 → INTOOBSV 19:27 → OBSVTOIN 07-19 14:34 → SURG A 07-19 17:38
PROVIDERS: ADMIT Student in an Organized Health Care Education/Training Program; ATTEND Internal Medicine
PROC: 0DJ08ZZ Inspection of Upper Intestinal Tract, Via Natural or Artificial Opening Endoscopic (ICD-10-PCS; principal; 2024-07-20)
PROC: 0DJD8ZZ Inspection of Lower Intestinal Tract, Via Natural or Artificial Opening Endoscopic (ICD-10-PCS; 2024-07-20)
DX: K91.840 Postprocedural hemorrhage of a digestive system organ or structure following a digestive system procedure (principal); C18.2 Malignant neoplasm of ascending colon; D62 Acute posthemorrhagic anemia; I13.0 Hypertensive heart and chronic kidney disease with heart failure and stage 1 through stage 4 chronic kidney disease, or unspecified chronic kidney disease; I50.22 Chronic systolic (congestive) heart failure; N18.4 Chronic kidney disease, stage 4 (severe); E11.22 Type 2 diabetes mellitus with diabetic chronic kidney disease; D63.1 Anemia in chronic kidney disease; K44.9 Diaphragmatic hernia without obstruction or gangrene; E78.5 Hyperlipidemia, unspecified; J44.9 Chronic obstructive pulmonary disease, unspecified; Z95.1 Presence of aortocoronary bypass graft; K64.8 Other hemorrhoids; K64.4 Residual hemorrhoidal skin tags; K57.90 Diverticulosis of intestine, part unspecified, without perforation or abscess without bleeding
CPT/HCPCS: 36415; 36416; 36430; 74176; 80048; 83036; 85025; 86850; 86900; 86901; 90653; G0378; J2704; J3010; P9016

== ENCOUNTER 2025-01-30 22:53 | Inpatient (IN) | payer OTHER ==
[2025-01-30 23:20] LABS: Actual Bicarbonate (HCO3v) 22.0 mEq/L (22-28); Analyzer IN Cardio ER; Base Excess -4.0 mEq/L (-2.0 to +3.0); Calcium, Ionized (venous) 1.06 mmol/L (1.16-1.32); Chloride (VBG) 101 mmol/L (98-106); Hematocrit-VBG 29 % (42.0-52.0); Hemoglobin (Hb) 10.0 g/dL (12.6-17.4); Potassium (VBG) 4.39 mmol/L (3.70-5.30); Sodium 136 mmol/L (133-146)
[2025-01-30 23:39] LABS: #Basophils 0.06 10x3/uL (0.0-0.2); #Eosinophils 0.41 10x3/uL (0.0-0.7); #Monocytes 0.36 10x3/uL (0.11-0.59); #Neutrophils 9.75 10x3/uL (1.40-6.50); %Basophils 0.5 % (0.0-1.0); %Eosinophils 3.6 % (0.0-10.0); %Lymphocytes 5.9 % (21.0-51.0); %Monocytes 3.2 % (0.0-10.0); %Neutrophils 86.5 % (42.0-75.0); Hematocrit 25.9 % (42.0-52.0); Hemoglobin 8.1 g/dL (14.0-18.0); Mean Corpuscular Hemoglobin 31.9 pg (27.0-31.0); Mean Corpuscular Volume 102.0 fL (78.0-98.0); Platelet Count 184 10x3/uL (130-400); Red Blood Cell (RBC) Count 2.54 mill/uL (4.70-6.10); White Blood Cell (WBC) Count 11.28 10x3/uL (4.8-10.8)
[2025-01-31 00:05] LABS: ALT (SGPT) 12 U/L (Less than 45); AST (SGOT) 19 U/L (11-34); Albumin 3.4 g/dL (3.1-4.5); Alkaline Phosphatase 118 U/L (40-110); Anion Gap 18 mmol/L (10-20); BUN (Urea Nitrogen) 30 mg/dL (8.4-25.7); Bilirubin, Total 0.7 mg/dL (0.3-1.2); Calc. Creatinine Clearance 0 mL/min (70-130); Calcium 8.3 mg/dL (7.8-10.44); Carbon Dioxide 19 mmol/L (23-31); Chloride 103 mmol/L (98-107); Globulin 3.6 g/dL (2.4-3.5); Glucose 176 mg/dL (83-110); Magnesium 1.6 mg/dL (1.6-2.6); Potassium 4.4 mmol/L (3.5-5.1); Sodium 136 mmol/L (136-145)
[2025-01-31 00:09] LABS: Troponin I 0.039 ng/mL (< 0.028)
[2025-01-31] MEDS ORDERED: Furosemide 40 MG (4 mL) VIAL ONE (01:25)
[2025-01-31] MEDS ORDERED: Acetaminophen 325 MG TAB PO PRN ×2 (02:45→02:56)
[2025-01-31] MEDS ORDERED: Ondansetron PF 4 MG/2 ML Vial IVP PRN ×2 (02:45→02:56)
[2025-01-31] MEDS ORDERED: Calcium Carbonate 500 MG ChewTAB PO PRN (02:56)
[2025-01-31 03:40] LABS: Troponin I 0.059 ng/mL (< 0.028)
[2025-01-31 04:18] VITALS: BMI 24.5
[2025-01-31] MEDS: cefTRIAXone\\ROCEPHIN 1 GM in Sodium Chloride 0.9% 100 ML IVPB SCH (04:33)
[2025-01-31 05:15] LABS: #Basophils 0.04 10x3/uL (0.0-0.2); #Eosinophils 0.04 10x3/uL (0.0-0.7); #Monocytes 0.45 10x3/uL (0.11-0.59); #Neutrophils 7.31 10x3/uL (1.40-6.50); %Basophils 0.5 % (0.0-1.0); %Eosinophils 0.5 % (0.0-10.0); %Lymphocytes 5.9 % (21.0-51.0); %Monocytes 5.4 % (0.0-10.0); %Neutrophils 87.5 % (42.0-75.0); Hematocrit 27.7 % (42.0-52.0); Hemoglobin 8.9 g/dL (14.0-18.0); Mean Corpuscular Hemoglobin 32.1 pg (27.0-31.0); Mean Corpuscular Volume 100.0 fL (78.0-98.0); Platelet Count 161 10x3/uL (130-400); Red Blood Cell (RBC) Count 2.77 mill/uL (4.70-6.10); White Blood Cell (WBC) Count 8.35 10x3/uL (4.8-10.8)
[2025-01-31] MEDS: Azithromycin 500 MG in Sodium Chloride 0.9% 250 ML 250 ML IVPB SCH (05:33)
[2025-01-31 05:46] LABS: ALT (SGPT) 11 U/L (Less than 45); AST (SGOT) 17 U/L (11-34); Albumin 3.2 g/dL (3.1-4.5); Alkaline Phosphatase 107 U/L (40-110); Anion Gap 17 mmol/L (10-20); BUN (Urea Nitrogen) 38 mg/dL (8.4-25.7); Bilirubin, Total 0.6 mg/dL (0.3-1.2); Calc. Creatinine Clearance 14 mL/min (70-130); Calcium 8.4 mg/dL (7.8-10.44); Carbon Dioxide 21 mmol/L (23-31); Chloride 103 mmol/L (98-107); Globulin 3.5 g/dL (2.4-3.5); Glucose 99 mg/dL (83-110); Potassium 4.6 mmol/L (3.5-5.1); Sodium 136 mmol/L (136-145)
[2025-01-31 06:31] LABS: Troponin I 0.062 ng/mL (< 0.028)
[2025-01-31] MEDS: Furosemide 40 MG (4 mL) VIAL SLOW IVP SCH (06:33)
[2025-01-31] MEDS ORDERED: Dapagliflozin Propanediol 10 MG TAB PO SCH (09:00)
[2025-01-31] MEDS: Carvedilol 3.125 MG TAB PO SCH (09:59)
[2025-01-31] MEDS: Aspirin Chewable 81 MG TAB PO SCH (09:59)
[2025-01-31] MEDS: Heparin 5,000 UNITS/ML VIAL SC SCH (10:00)
[2025-01-31] MEDS: Sodium Bicarbonate Tab 325 MG TAB PO SCH (10:00)
[2025-01-31] MEDS: Pantoprazole 40 MG VIAL IVP SCH (10:00)
[2025-01-31 15:50] VITALS: BMI 24.5
[2025-01-31] MEDS: EPOETIN ALFA-EPBX (NON-ESRD) 40,000 UNITS/ML VIAL SC SCH (16:29)
[2025-02-01 05:08] LABS: Hematocrit 25.8 % (42.0-52.0); Hemoglobin 8.3 g/dL (14.0-18.0); Mean Corpuscular Hemoglobin 31.7 pg (27.0-31.0); Mean Corpuscular Volume 98.5 fL (78.0-98.0); Platelet Count 157 10x3/uL (130-400); Red Blood Cell (RBC) Count 2.62 mill/uL (4.70-6.10); White Blood Cell (WBC) Count 5.48 10x3/uL (4.8-10.8)
[2025-02-01 05:23] LABS: Anion Gap 14 mmol/L (10-20); BUN (Urea Nitrogen) 46 mg/dL (8.4-25.7); Calc. Creatinine Clearance 12 mL/min (70-130); Calcium 8.0 mg/dL (7.8-10.44); Carbon Dioxide 24 mmol/L (23-31); Chloride 102 mmol/L (98-107); Glucose 107 mg/dL (83-110); Potassium 4.3 mmol/L (3.5-5.1); Sodium 136 mmol/L (136-145)
[2025-02-01] MEDS: Furosemide 40 MG (4 mL) VIAL SLOW IVP SCH (09:15)
[2025-02-02 03:46] LABS: #Basophils 0.04 10x3/uL (0.0-0.2); #Eosinophils 0.38 10x3/uL (0.0-0.7); #Monocytes 0.56 10x3/uL (0.11-0.59); #Neutrophils 4.03 10x3/uL (1.40-6.50); %Basophils 0.7 % (0.0-1.0); %Eosinophils 6.5 % (0.0-10.0); %Lymphocytes 14.3 % (21.0-51.0); %Monocytes 9.5 % (0.0-10.0); %Neutrophils 68.7 % (42.0-75.0); Hematocrit 25.3 % (42.0-52.0); Hemoglobin 8.0 g/dL (14.0-18.0); Mean Corpuscular Hemoglobin 31.4 pg (27.0-31.0); Mean Corpuscular Volume 99.2 fL (78.0-98.0); Platelet Count 155 10x3/uL (130-400); Red Blood Cell (RBC) Count 2.55 mill/uL (4.70-6.10); White Blood Cell (WBC) Count 5.87 10x3/uL (4.8-10.8)
[2025-02-02 04:40] LABS: Anion Gap 16 mmol/L (10-20); BUN (Urea Nitrogen) 49 mg/dL (8.4-25.7); Calc. Creatinine Clearance 12 mL/min (70-130); Calcium 7.8 mg/dL (7.8-10.44); Carbon Dioxide 22 mmol/L (23-31); Chloride 106 mmol/L (98-107); Glucose 96 mg/dL (83-110); Potassium 3.5 mmol/L (3.5-5.1); Sodium 140 mmol/L (136-145)
[2025-02-02] MEDS: EPOETIN ALFA-EPBX (ESRD) 10,000 UNITS/ML VIAL SC SCH (13:53)
[2025-02-03 04:13] LABS: #Basophils 0.04 10x3/uL (0.0-0.2); #Eosinophils 0.51 10x3/uL (0.0-0.7); #Monocytes 0.45 10x3/uL (0.11-0.59); #Neutrophils 2.79 10x3/uL (1.40-6.50); %Basophils 0.9 % (0.0-1.0); %Eosinophils 11.2 % (0.0-10.0); %Lymphocytes 16.3 % (21.0-51.0); %Monocytes 9.9 % (0.0-10.0); %Neutrophils 61.5 % (42.0-75.0); Hematocrit 22.1 % (42.0-52.0); Hemoglobin 7.3 g/dL (14.0-18.0); Mean Corpuscular Hemoglobin 32.9 pg (27.0-31.0); Mean Corpuscular Volume 99.5 fL (78.0-98.0); Platelet Count 149 10x3/uL (130-400); Red Blood Cell (RBC) Count 2.22 mill/uL (4.70-6.10); White Blood Cell (WBC) Count 4.54 10x3/uL (4.8-10.8)
[2025-02-03 04:36] LABS: Anion Gap 16 mmol/L (10-20); BUN (Urea Nitrogen) 50 mg/dL (8.4-25.7); Calc. Creatinine Clearance 13 mL/min (70-130); Calcium 7.6 mg/dL (7.8-10.44); Carbon Dioxide 24 mmol/L (23-31); Chloride 104 mmol/L (98-107); Glucose 124 mg/dL (83-110); Potassium 3.8 mmol/L (3.5-5.1); Sodium 140 mmol/L (136-145)
[2025-02-03] MEDS: Calcitriol 0.25 MCG CAP PO SCH (15:19)
[2025-02-04 04:10] LABS: Hematocrit 23.2 % (42.0-52.0); Hemoglobin 7.4 g/dL (14.0-18.0); Mean Corpuscular Hemoglobin 31.9 pg (27.0-31.0); Mean Corpuscular Volume 100.0 fL (78.0-98.0); Platelet Count 163 10x3/uL (130-400); Red Blood Cell (RBC) Count 2.32 mill/uL (4.70-6.10); White Blood Cell (WBC) Count 4.81 10x3/uL (4.8-10.8)
[2025-02-04 04:41] LABS: Anion Gap 14 mmol/L (10-20); BUN (Urea Nitrogen) 49 mg/dL (8.4-25.7); Calc. Creatinine Clearance 13 mL/min (70-130); Calcium 7.9 mg/dL (7.8-10.44); Carbon Dioxide 23 mmol/L (23-31); Chloride 104 mmol/L (98-107); Glucose 109 mg/dL (83-110); Potassium 4.1 mmol/L (3.5-5.1); Sodium 137 mmol/L (136-145)
[2025-02-04] MEDS: Dapagliflozin Propanediol 10 MG TAB PO SCH (16:57)
[2025-02-04] MEDS: Ergocalciferol 1.25 MG(50,000 UNITS) CAP PO SCH (16:57)
[2025-02-05 05:40] LABS: Albumin 2.8 g/dL (3.1-4.5)
[2025-02-05 05:47] LABS: Anion Gap 15 mmol/L (10-20); BUN (Urea Nitrogen) 55 mg/dL (8.4-25.7); Calc. Creatinine Clearance 13 mL/min (70-130); Calcium 8.0 mg/dL (7.8-10.44); Carbon Dioxide 22 mmol/L (23-31); Chloride 105 mmol/L (98-107); Glucose 93 mg/dL (83-110); Magnesium 1.7 mg/dL (1.6-2.6); Potassium 4.1 mmol/L (3.5-5.1); Sodium 138 mmol/L (136-145)
[2025-02-05] MEDS: Albumin 25% 25 GM (100 mL) BOT IVPB SCH (06:49)
[2025-02-05] MEDS: Magnesium Oxide 400 MG TAB PO SCH (09:54)
[2025-02-05] MEDS: EPOETIN ALFA-EPBX (ESRD) 10,000 UNITS/ML VIAL SC SCH (09:55)
[2025-02-05 12:28] VITALS: TEMP 97.5
[2025-02-05 16:57] VITALS: BP 141/64
[2025-02-11] MEDS ORDERED: Ergocalciferol 1.25 MG(50,000 UNITS) CAP PO SCH (09:00)
== END 2025-02-05 16:50 | disposition home or self-care (01) | DRG 280 ==
LOC: ERS 22:53 → IMCU/EMU 01-31 02:27 → PCU 02-01 17:37
PROVIDERS: ADMIT Student in an Organized Health Care Education/Training Program; ATTEND Internal Medicine
DX: I13.0 Hypertensive heart and chronic kidney disease with heart failure and stage 1 through stage 4 chronic kidney disease, or unspecified chronic kidney disease (principal); I50.23 Acute on chronic systolic (congestive) heart failure; I21.A1 Myocardial infarction type 2; J96.21 Acute and chronic respiratory failure with hypoxia; J18.9 Pneumonia, unspecified organism; N18.4 Chronic kidney disease, stage 4 (severe); C95.91 Leukemia, unspecified, in remission; N17.9 Acute kidney failure, unspecified; E87.20 Acidosis, unspecified; N25.81 Secondary hyperparathyroidism of renal origin; I25.5 Ischemic cardiomyopathy; E78.5 Hyperlipidemia, unspecified; E11.22 Type 2 diabetes mellitus with diabetic chronic kidney disease; D63.1 Anemia in chronic kidney disease; J44.9 Chronic obstructive pulmonary disease, unspecified; F10.90 Alcohol use, unspecified, uncomplicated; M71.20 Synovial cyst of popliteal space [Baker], unspecified knee; E88.09 Other disorders of plasma-protein metabolism, not elsewhere classified; I34.0 Nonrheumatic mitral (valve) insufficiency; I35.0 Nonrheumatic aortic (valve) stenosis; I36.1 Nonrheumatic tricuspid (valve) insufficiency; E55.9 Vitamin D deficiency, unspecified; F17.210 Nicotine dependence, cigarettes, uncomplicated; I25.2 Old myocardial infarction; Z95.1 Presence of aortocoronary bypass graft; Z98.890 Other specified postprocedural states; Z85.118 Personal history of other malignant neoplasm of bronchus and lung; Z79.899 Other long term (current) drug therapy
CPT/HCPCS: 36415; 71045; 71250; 80048; 80053; 82040; 82306; 82805; 83605; 83735; 83880; 83970; 84100; 84145; 84484; 85025; 85027; 85379; 86850; 86900; 86901; 87040; 93005; 93306; 93798; 93970; 94640; 94660; 94760; 96374; J0456; J0696; J1644; J1940; J2470; J7050; J7620; P9047; Q5105; Q5106

== ENCOUNTER 2025-02-15 22:36 | Inpatient (IN) | payer OTHER ==
[2025-02-15] MEDS ORDERED: Furosemide 40 MG (4 mL) VIAL ONE (23:25)
[2025-02-16 00:14] LABS: #Basophils 0.06 10x3/uL (0.0-0.2); #Eosinophils 0.12 10x3/uL (0.0-0.7); #Monocytes 0.31 10x3/uL (0.11-0.59); #Neutrophils 7.95 10x3/uL (1.40-6.50); %Basophils 0.7 % (0.0-1.0); %Eosinophils 1.4 % (0.0-10.0); %Lymphocytes 3.8 % (21.0-51.0); %Monocytes 3.5 % (0.0-10.0); %Neutrophils 90.3 % (42.0-75.0); Hematocrit 27.6 % (42.0-52.0); Hemoglobin 8.8 g/dL (14.0-18.0); Mean Corpuscular Hemoglobin 31.9 pg (27.0-31.0); Mean Corpuscular Volume 100.0 fL (78.0-98.0); Platelet Count 212 10x3/uL (130-400); Red Blood Cell (RBC) Count 2.76 mill/uL (4.70-6.10); White Blood Cell (WBC) Count 8.80 10x3/uL (4.8-10.8)
[2025-02-16 01:00] LABS: ALT (SGPT) 40 U/L (Less than 45); AST (SGOT) 33 U/L (11-34); Albumin 3.4 g/dL (3.1-4.5); Alkaline Phosphatase 130 U/L (40-110); Anion Gap 17 mmol/L (10-20); BUN (Urea Nitrogen) 48 mg/dL (8.4-25.7); Bilirubin, Total 0.5 mg/dL (0.3-1.2); Calc. Creatinine Clearance 0 mL/min (70-130); Calcium 8.2 mg/dL (7.8-10.44); Carbon Dioxide 21 mmol/L (23-31); Chloride 106 mmol/L (98-107); Globulin 3.1 g/dL (2.4-3.5); Glucose 153 mg/dL (83-110); Potassium 5.4 mmol/L (3.5-5.1); Sodium 139 mmol/L (136-145)
[2025-02-16] MEDS ORDERED: Ondansetron PF 4 MG/2 ML Vial IVP PRN (03:50)
[2025-02-16] MEDS ORDERED: Calcium Carbonate 500 MG ChewTAB PO PRN (03:50)
[2025-02-16 04:44] VITALS: BMI 23.9
[2025-02-16] MEDS: Furosemide 20 MG (2 mL) VIAL SLOW IVP SCH (05:56)
[2025-02-16] MEDS: Mometasone 200 MCG/Formoterol 5 MCG 120 PUFF INHALER INH SCH (06:54)
[2025-02-16 08:26] LABS: Albumin 3.6 g/dL (3.1-4.5); Anion Gap 19 mmol/L (10-20); BUN (Urea Nitrogen) 48 mg/dL (8.4-25.7); BUN/Creatinine Ratio 11.40; Calc. Creatinine Clearance 12 mL/min (70-130); Calcium 8.8 mg/dL (7.8-10.44); Carbon Dioxide 18 mmol/L (23-31); Chloride 108 mmol/L (98-107); Glucose 108 mg/dL (83-110); Potassium 5.0 mmol/L (3.5-5.1); Sodium 140 mmol/L (136-145)
[2025-02-16] MEDS: Carvedilol 3.125 MG TAB PO SCH (08:27)
[2025-02-16] MEDS: Aspirin Chewable 81 MG TAB PO SCH (08:27)
[2025-02-16] MEDS: Sodium Bicarbonate Tab 325 MG TAB PO SCH (08:27)
[2025-02-16] MEDS: Calcitriol 0.25 MCG CAP PO SCH (08:27)
[2025-02-16] MEDS: Magnesium Oxide 400 MG TAB PO SCH (08:28)
[2025-02-16] MEDS: Pantoprazole 40 MG DR.TAB PO SCH (08:28)
[2025-02-16] MEDS: Dapagliflozin Propanediol 10 MG TAB PO SCH (08:28)
[2025-02-16] MEDS: EPOETIN ALFA-EPBX (ESRD) 10,000 UNITS/ML VIAL SC SCH (13:22)
[2025-02-16] MEDS: Heparin 5,000 UNITS/ML VIAL SC SCH (22:26)
[2025-02-17 04:41] LABS: #Basophils 0.05 10x3/uL (0.0-0.2); #Eosinophils 0.30 10x3/uL (0.0-0.7); #Monocytes 0.46 10x3/uL (0.11-0.59); #Neutrophils 4.09 10x3/uL (1.40-6.50); %Basophils 0.9 % (0.0-1.0); %Eosinophils 5.4 % (0.0-10.0); %Lymphocytes 10.9 % (21.0-51.0); %Monocytes 8.3 % (0.0-10.0); %Neutrophils 74.3 % (42.0-75.0); Hematocrit 27.9 % (42.0-52.0); Hemoglobin 8.9 g/dL (14.0-18.0); Mean Corpuscular Hemoglobin 31.8 pg (27.0-31.0); Mean Corpuscular Volume 99.6 fL (78.0-98.0); Platelet Count 225 10x3/uL (130-400); Red Blood Cell (RBC) Count 2.80 mill/uL (4.70-6.10); White Blood Cell (WBC) Count 5.51 10x3/uL (4.8-10.8)
[2025-02-17 05:11] LABS: ALT (SGPT) 25 U/L (Less than 45); AST (SGOT) 27 U/L (11-34); Albumin 3.2 g/dL (3.1-4.5); Alkaline Phosphatase 105 U/L (40-110); Anion Gap 19 mmol/L (10-20); BUN (Urea Nitrogen) 48 mg/dL (8.4-25.7); Bilirubin, Total 0.8 mg/dL (0.3-1.2); Calc. Creatinine Clearance 11 mL/min (70-130); Calcium 8.7 mg/dL (7.8-10.44); Carbon Dioxide 18 mmol/L (23-31); Chloride 108 mmol/L (98-107); Globulin 3.3 g/dL (2.4-3.5); Glucose 100 mg/dL (83-110); Potassium 4.9 mmol/L (3.5-5.1); Sodium 140 mmol/L (136-145)
[2025-02-17] MEDS: Sodium Bicarbonate Tab 325 MG TAB PO SCH (13:32)
[2025-02-18 07:02] LABS: #Basophils 0.04 10x3/uL (0.0-0.2); #Eosinophils 0.36 10x3/uL (0.0-0.7); #Monocytes 0.44 10x3/uL (0.11-0.59); #Neutrophils 2.58 10x3/uL (1.40-6.50); %Basophils 0.9 % (0.0-1.0); %Eosinophils 8.5 % (0.0-10.0); %Lymphocytes 18.7 % (21.0-51.0); %Monocytes 10.4 % (0.0-10.0); %Neutrophils 61.3 % (42.0-75.0); Hematocrit 25.2 % (42.0-52.0); Hemoglobin 8.1 g/dL (14.0-18.0); Mean Corpuscular Hemoglobin 31.9 pg (27.0-31.0); Mean Corpuscular Volume 99.2 fL (78.0-98.0); Platelet Count 194 10x3/uL (130-400); Red Blood Cell (RBC) Count 2.54 mill/uL (4.70-6.10); White Blood Cell (WBC) Count 4.22 10x3/uL (4.8-10.8)
[2025-02-18 07:22] LABS: Anion Gap 18 mmol/L (10-20); BUN (Urea Nitrogen) 56 mg/dL (8.4-25.7); Calc. Creatinine Clearance 11 mL/min (70-130); Calcium 8.8 mg/dL (7.8-10.44); Carbon Dioxide 21 mmol/L (23-31); Chloride 105 mmol/L (98-107); Glucose 93 mg/dL (83-110); Potassium 4.7 mmol/L (3.5-5.1); Sodium 139 mmol/L (136-145)
[2025-02-18] MEDS ORDERED: Furosemide 20 MG (2 mL) VIAL SLOW IVP SCH (09:00)
[2025-02-18] MEDS: Torsemide 20 MG TAB PO SCH (09:53)
[2025-02-18] MEDS: Sodium Bicarbonate Tab 325 MG TAB PO SCH (10:57)
[2025-02-19 07:13] LABS: #Basophils 0.05 10x3/uL (0.0-0.2); #Eosinophils 0.37 10x3/uL (0.0-0.7); #Monocytes 0.44 10x3/uL (0.11-0.59); #Neutrophils 2.86 10x3/uL (1.40-6.50); %Basophils 1.1 % (0.0-1.0); %Eosinophils 8.2 % (0.0-10.0); %Lymphocytes 16.9 % (21.0-51.0); %Monocytes 9.8 % (0.0-10.0); %Neutrophils 63.6 % (42.0-75.0); Hematocrit 24.8 % (42.0-52.0); Hemoglobin 7.9 g/dL (14.0-18.0); Mean Corpuscular Hemoglobin 31.7 pg (27.0-31.0); Mean Corpuscular Volume 99.6 fL (78.0-98.0); Platelet Count 200 10x3/uL (130-400); Red Blood Cell (RBC) Count 2.49 mill/uL (4.70-6.10); White Blood Cell (WBC) Count 4.50 10x3/uL (4.8-10.8)
[2025-02-19 07:33] LABS: Albumin 3.2 g/dL (3.1-4.5); Anion Gap 17 mmol/L (10-20); BUN (Urea Nitrogen) 57 mg/dL (8.4-25.7); BUN/Creatinine Ratio 12.67; Calc. Creatinine Clearance 11 mL/min (70-130); Calcium 8.5 mg/dL (7.8-10.44); Carbon Dioxide 22 mmol/L (23-31); Chloride 105 mmol/L (98-107); Glucose 91 mg/dL (83-110); Potassium 4.5 mmol/L (3.5-5.1); Sodium 139 mmol/L (136-145)
[2025-02-19] MEDS: Acetaminophen 325 MG TAB PO PRN (09:31)
[2025-02-19] MEDS: Sodium Ferric Gluconate 250 MG in Sodium Chloride 0.9% 250 ML 250 ML IVPB SCH (09:33)
[2025-02-19 11:44] VITALS: BP 120/50; TEMP 98
== END 2025-02-19 16:00 | disposition home or self-care (01) | DRG 291 ==
LOC: ERS 22:36 → IMCU/EMU 02-16 02:29 → SURG A 02-18 15:23
PROVIDERS: ADMIT Student in an Organized Health Care Education/Training Program; ATTEND Internal Medicine
PROC: 5A09357 Assistance with Respiratory Ventilation, Less than 24 Consecutive Hours, Continuous Positive Airway Pressure (ICD-10-PCS; principal; 2025-02-16)
DX: I13.0 Hypertensive heart and chronic kidney disease with heart failure and stage 1 through stage 4 chronic kidney disease, or unspecified chronic kidney disease (principal); I50.23 Acute on chronic systolic (congestive) heart failure; J96.21 Acute and chronic respiratory failure with hypoxia; N18.4 Chronic kidney disease, stage 4 (severe); J44.1 Chronic obstructive pulmonary disease with (acute) exacerbation; C34.90 Malignant neoplasm of unspecified part of unspecified bronchus or lung; N17.9 Acute kidney failure, unspecified; E87.20 Acidosis, unspecified; E11.9 Type 2 diabetes mellitus without complications; I25.10 Atherosclerotic heart disease of native coronary artery without angina pectoris; D64.9 Anemia, unspecified; E78.5 Hyperlipidemia, unspecified; J44.9 Chronic obstructive pulmonary disease, unspecified; Z98.890 Other specified postprocedural states; Z95.1 Presence of aortocoronary bypass graft; D63.1 Anemia in chronic kidney disease; I25.5 Ischemic cardiomyopathy; E87.5 Hyperkalemia; Z79.899 Other long term (current) drug therapy; Z79.82 Long term (current) use of aspirin
CPT/HCPCS: 36415; 36416; 71045; 80048; 80053; 80069; 83880; 84484; 85025; 85379; 87040; 93005; 93798; 94660; 94760; 96374; 96375; 97139; J1644; J1940; J2916; J7050; J7620; Q5105

== ENCOUNTER 2025-04-06 11:07 | Inpatient (IN) | payer OTHER ==
[2025-04-06] MEDS ORDERED: Cefepime 2 GM VIAL ONE (11:27)
[2025-04-06] MEDS ORDERED: VANCOMYCIN 2 GRAM/400 ML BAG ONE (11:27)
[2025-04-06 11:35] LABS: Bacteria/HPF None Seen HPF (None Seen); CAUTI Indications for Culture Fever or rigors; Glucose, Urine (Dipstick) 500 mg/dL (Negative); Leukocyte Negative Leu/uL (Negative); Protein, Urine (Dipstick) 100 mg/dL (Neg-Trace); RBC/HPF 0-3 HPF (0-3); Specific Gravity, Urine 1.011 (1.002-1.036); WBC/HPF 0-3 HPF (0-3)
[2025-04-06 11:36] LABS: #Basophils 0.03 10x3/uL (0.0-0.2); #Eosinophils 0.10 10x3/uL (0.0-0.7); #Monocytes 0.40 10x3/uL (0.11-0.59); #Neutrophils 9.31 10x3/uL (1.40-6.50); %Basophils 0.3 % (0.0-1.0); %Eosinophils 1.0 % (0.0-10.0); %Lymphocytes 2.6 % (21.0-51.0); %Monocytes 3.9 % (0.0-10.0); %Neutrophils 91.7 % (42.0-75.0); Hematocrit 36.5 % (42.0-52.0); Hemoglobin 11.2 g/dL (14.0-18.0); Mean Corpuscular Hemoglobin 31.2 pg (27.0-31.0); Mean Corpuscular Volume 101.7 fL (78.0-98.0); Platelet Count 201 10x3/uL (130-400); Red Blood Cell (RBC) Count 3.59 mill/uL (4.70-6.10); White Blood Cell (WBC) Count 10.15 10x3/uL (4.8-10.8)
[2025-04-06 11:36] LABS: Urine Culture Reflex No No
[2025-04-06 11:54] LABS: Actual Bicarbonate (HCO3v) 23.0 mEq/L (22-28); Analyzer IN Cardio ER; Base Excess -2.8 mEq/L (-2.0 to +3.0); Calcium, Ionized (venous) 1.03 mmol/L (1.16-1.32); Chloride (VBG) 103 mmol/L (98-106); Hematocrit-VBG 37 % (42.0-52.0); Hemoglobin (Hb) 12.6 g/dL (12.6-17.4); Potassium (VBG) 5.28 mmol/L (3.70-5.30); Sodium 140 mmol/L (133-146)
[2025-04-06 11:54] LABS: ALT (SGPT) 28 U/L (Less than 45); AST (SGOT) 31 U/L (11-34); Albumin 3.6 g/dL (3.1-4.5); Alkaline Phosphatase 110 U/L (40-110); Anion Gap 19 mmol/L (10-20); BUN (Urea Nitrogen) 58 mg/dL (8.4-25.7); Bilirubin, Total 0.6 mg/dL (0.3-1.2); Calc. Creatinine Clearance 0 mL/min (70-130); Calcium 9.0 mg/dL (7.8-10.44); Carbon Dioxide 18 mmol/L (23-31); Chloride 107 mmol/L (98-107); Globulin 4.2 g/dL (2.4-3.5); Glucose 95 mg/dL (83-110); Potassium 5.1 mmol/L (3.5-5.1); Sodium 139 mmol/L (136-145)
[2025-04-06] MEDS ORDERED: Guaifenesin DM 100-10/5 ML UDCUP PO PRN (13:41)
[2025-04-06] MEDS ORDERED: Senokot S 8.6-50 MG TAB PO PRN (13:41)
[2025-04-06] MEDS ORDERED: Ondansetron PF 4 MG/2 ML Vial IVP PRN (13:41)
[2025-04-06 16:10] VITALS: BMI 22.8
[2025-04-06] MEDS ORDERED: Heparin 5,000 UNITS/ML VIAL ONE (18:10)
[2025-04-06] MEDS: Heparin 5,000 UNITS/ML VIAL SC SCH (18:14)
[2025-04-06] MEDS ORDERED: Vancomycin Dose by Levels Sliding Scale (Wt <71) FS SCH (21:00)
[2025-04-06] MEDS ORDERED: Vancomycin 1 GM in Premix 1 BAG IVPB SCH (21:00)
[2025-04-06] MEDS: Famotidine/PF 20 mg/2ml Vial SLOW IVP SCH (22:05)
[2025-04-06] MEDS: Carvedilol 3.125 MG TAB PO SCH (22:05)
[2025-04-07 05:25] LABS: Hematocrit 27.3 % (42.0-52.0); Hemoglobin 8.6 g/dL (14.0-18.0); Mean Corpuscular Hemoglobin 31.2 pg (27.0-31.0); Mean Corpuscular Volume 98.9 fL (78.0-98.0); Platelet Count 166 10x3/uL (130-400); Red Blood Cell (RBC) Count 2.76 mill/uL (4.70-6.10); White Blood Cell (WBC) Count 12.01 10x3/uL (4.8-10.8)
[2025-04-07] MEDS: Furosemide 40 MG (4 mL) VIAL SLOW IVP SCH (05:55)
[2025-04-07 05:57] LABS: Anisocytosis SLIGHT = 6-15 cells HPF (0-5); Macrocytosis SLIGHT = 6-15 cells HPF (0-5); Platelet Adequacy Comment Platelets Normal; Polychromasia SLIGHT = 2-3 cells HPF (0-2); Smudge Cells 1.0 %
[2025-04-07 07:41] LABS: ALT (SGPT) 18 U/L (Less than 45); AST (SGOT) 16 U/L (11-34); Albumin 2.7 g/dL (3.1-4.5); Alkaline Phosphatase 66 U/L (40-110); Anion Gap 15 mmol/L (10-20); BUN (Urea Nitrogen) 59 mg/dL (8.4-25.7); Bilirubin, Total 0.6 mg/dL (0.3-1.2); Calc. Creatinine Clearance 13 mL/min (70-130); Calcium 8.4 mg/dL (7.8-10.44); Carbon Dioxide 21 mmol/L (23-31); Chloride 106 mmol/L (98-107); Globulin 3.4 g/dL (2.4-3.5); Glucose 87 mg/dL (83-110); Potassium 4.3 mmol/L (3.5-5.1); Sodium 138 mmol/L (136-145)
[2025-04-07] MEDS: Aspirin Chewable 81 MG TAB PO SCH (07:57)
[2025-04-07] MEDS: Dapagliflozin Propanediol 10 MG TAB PO SCH (07:57)
[2025-04-07 12:14] LABS: Vancomycin, Trough 18.9 ug/mL
[2025-04-07] MEDS: Floranex 1 GM Packet PO SCH (13:59)
[2025-04-07] MEDS: Sodium Bicarbonate Tab 325 MG TAB PO SCH (20:45)
[2025-04-08 04:40] LABS: #Basophils 0.04 10x3/uL (0.0-0.2); #Eosinophils 0.49 10x3/uL (0.0-0.7); #Monocytes 0.55 10x3/uL (0.11-0.59); #Neutrophils 7.09 10x3/uL (1.40-6.50); %Basophils 0.5 % (0.0-1.0); %Eosinophils 5.6 % (0.0-10.0); %Lymphocytes 5.7 % (21.0-51.0); %Monocytes 6.3 % (0.0-10.0); %Neutrophils 81.6 % (42.0-75.0); Hematocrit 26.8 % (42.0-52.0); Hemoglobin 8.3 g/dL (14.0-18.0); Mean Corpuscular Hemoglobin 31.1 pg (27.0-31.0); Mean Corpuscular Volume 100.4 fL (78.0-98.0); Platelet Count 164 10x3/uL (130-400); Red Blood Cell (RBC) Count 2.67 mill/uL (4.70-6.10); White Blood Cell (WBC) Count 8.70 10x3/uL (4.8-10.8)
[2025-04-08 05:03] LABS: Calc. Creatinine Clearance 11.0 mL/min (70-130)
[2025-04-08 08:31] LABS: Albumin 2.7 g/dL (3.1-4.5); Anion Gap 17 mmol/L (10-20); BUN (Urea Nitrogen) 71 mg/dL (8.4-25.7); BUN/Creatinine Ratio 17.19; Calc. Creatinine Clearance 12 mL/min (70-130); Calcium 8.4 mg/dL (7.8-10.44); Carbon Dioxide 18 mmol/L (23-31); Chloride 103 mmol/L (98-107); Glucose 88 mg/dL (83-110); Potassium 4.8 mmol/L (3.5-5.1); Sodium 133 mmol/L (136-145)
[2025-04-08] MEDS: Floranex 1 GM Packet PO SCH (09:29)
[2025-04-08] MEDS: Sodium Bicarbonate Tab 325 MG TAB PO SCH ×2 (11:03→20:22)
[2025-04-08] MEDS: Spironolactone 25 MG TAB PO SCH (11:05)
[2025-04-08 13:35] LABS: Vancomycin, Trough 20.9 ug/mL
[2025-04-09 05:12] LABS: Vancomycin, Trough 18.7 ug/mL
[2025-04-09 05:19] LABS: Albumin 2.6 g/dL (3.1-4.5); Anion Gap 15 mmol/L (10-20); BUN (Urea Nitrogen) 70 mg/dL (8.4-25.7); BUN/Creatinine Ratio 15.12; Calc. Creatinine Clearance 10 mL/min (70-130); Calcium 8.2 mg/dL (7.8-10.44); Carbon Dioxide 20 mmol/L (23-31); Chloride 102 mmol/L (98-107); Glucose 86 mg/dL (83-110); Potassium 4.5 mmol/L (3.5-5.1); Sodium 132 mmol/L (136-145)
[2025-04-09] MEDS ORDERED: Torsemide 20 MG TAB PO SCH (09:00)
[2025-04-09] MEDS: Spironolactone 25 MG TAB PO SCH (09:32)
[2025-04-09] MEDS: Sodium Ferric Gluconate 250 MG in Sodium Chloride 0.9% 250 ML 250 ML IVPB SCH (09:34)
[2025-04-09] MEDS: EPOETIN ALFA-EPBX (ESRD) 10,000 UNITS/ML VIAL SC SCH (13:39)
[2025-04-10 05:30] LABS: #Basophils 0.04 10x3/uL (0.0-0.2); #Eosinophils 0.38 10x3/uL (0.0-0.7); #Monocytes 0.43 10x3/uL (0.11-0.59); #Neutrophils 5.25 10x3/uL (1.40-6.50); %Basophils 0.6 % (0.0-1.0); %Eosinophils 5.7 % (0.0-10.0); %Lymphocytes 7.9 % (21.0-51.0); %Monocytes 6.4 % (0.0-10.0); %Neutrophils 78.8 % (42.0-75.0); Hematocrit 23.9 % (42.0-52.0); Hemoglobin 7.6 g/dL (14.0-18.0); Mean Corpuscular Hemoglobin 31.3 pg (27.0-31.0); Mean Corpuscular Volume 98.4 fL (78.0-98.0); Platelet Count 212 10x3/uL (130-400); Red Blood Cell (RBC) Count 2.43 mill/uL (4.70-6.10); White Blood Cell (WBC) Count 6.67 10x3/uL (4.8-10.8)
[2025-04-10 05:48] LABS: Vancomycin, Trough 18.1 ug/mL
[2025-04-10 05:52] LABS: ALT (SGPT) 44 U/L (Less than 45); AST (SGOT) 35 U/L (11-34); Albumin 2.5 g/dL (3.1-4.5); Alkaline Phosphatase 79 U/L (40-110); Anion Gap 14 mmol/L (10-20); BUN (Urea Nitrogen) 79 mg/dL (8.4-25.7); Bilirubin, Total 0.4 mg/dL (0.3-1.2); Calc. Creatinine Clearance 10 mL/min (70-130); Calcium 8.2 mg/dL (7.8-10.44); Carbon Dioxide 19 mmol/L (23-31); Chloride 105 mmol/L (98-107); Globulin 3.5 g/dL (2.4-3.5); Glucose 82 mg/dL (83-110); Magnesium 1.7 mg/dL (1.6-2.6); Potassium 4.6 mmol/L (3.5-5.1); Sodium 133 mmol/L (136-145)
[2025-04-10 13:32] LABS: Hematocrit 26.3 % (42.0-52.0); Hemoglobin 8.7 g/dL (14.0-18.0); Mean Corpuscular Hemoglobin 32.5 pg (27.0-31.0); Mean Corpuscular Volume 98.1 fL (78.0-98.0); Platelet Count 230 10x3/uL (130-400); Red Blood Cell (RBC) Count 2.68 mill/uL (4.70-6.10); White Blood Cell (WBC) Count 6.42 10x3/uL (4.8-10.8)
[2025-04-11] MEDS: Albumin 25% 25 GM (100 mL) BOT IVPB SCH (11:18)
[2025-04-11 11:52] LABS: #Basophils 0.04 10x3/uL (0.0-0.2); #Eosinophils 0.31 10x3/uL (0.0-0.7); #Monocytes 0.37 10x3/uL (0.11-0.59); #Neutrophils 5.33 10x3/uL (1.40-6.50); %Basophils 0.6 % (0.0-1.0); %Eosinophils 4.7 % (0.0-10.0); %Lymphocytes 7.3 % (21.0-51.0); %Monocytes 5.6 % (0.0-10.0); %Neutrophils 80.9 % (42.0-75.0); Hematocrit 26.4 % (42.0-52.0); Hemoglobin 8.2 g/dL (14.0-18.0); Mean Corpuscular Hemoglobin 30.8 pg (27.0-31.0); Mean Corpuscular Volume 99.2 fL (78.0-98.0); Platelet Count 226 10x3/uL (130-400); Red Blood Cell (RBC) Count 2.66 mill/uL (4.70-6.10); White Blood Cell (WBC) Count 6.59 10x3/uL (4.8-10.8)
[2025-04-11 12:10] LABS: Vancomycin, Trough 16.7 ug/mL
[2025-04-11 12:13] LABS: ALT (SGPT) 38 U/L (Less than 45); AST (SGOT) 25 U/L (11-34); Albumin 2.9 g/dL (3.1-4.5); Alkaline Phosphatase 94 U/L (40-110); Anion Gap 14 mmol/L (10-20); BUN (Urea Nitrogen) 79 mg/dL (8.4-25.7); Bilirubin, Total 0.5 mg/dL (0.3-1.2); Calc. Creatinine Clearance 11 mL/min (70-130); Calcium 8.5 mg/dL (7.8-10.44); Carbon Dioxide 19 mmol/L (23-31); Chloride 109 mmol/L (98-107); Globulin 3.2 g/dL (2.4-3.5); Glucose 158 mg/dL (83-110); Magnesium 1.8 mg/dL (1.6-2.6); Potassium 4.9 mmol/L (3.5-5.1); Sodium 137 mmol/L (136-145)
[2025-04-11] MEDS: Torsemide 20 MG TAB PO SCH (14:25)
[2025-04-11] MEDS: Dapagliflozin Propanediol 10 MG TAB PO SCH (14:25)
[2025-04-11 15:44] VITALS: BMI 23.1
[2025-04-12] MEDS: Acetaminophen 325 MG TAB PO PRN (03:08)
[2025-04-12 05:51] LABS: #Basophils 0.06 10x3/uL (0.0-0.2); #Eosinophils 0.33 10x3/uL (0.0-0.7); #Monocytes 0.49 10x3/uL (0.11-0.59); #Neutrophils 3.92 10x3/uL (1.40-6.50); %Basophils 1.1 % (0.0-1.0); %Eosinophils 6.0 % (0.0-10.0); %Lymphocytes 12.0 % (21.0-51.0); %Monocytes 8.9 % (0.0-10.0); %Neutrophils 71.1 % (42.0-75.0); Hematocrit 23.5 % (42.0-52.0); Hemoglobin 7.4 g/dL (14.0-18.0); Mean Corpuscular Hemoglobin 31.1 pg (27.0-31.0); Mean Corpuscular Volume 98.7 fL (78.0-98.0); Platelet Count 214 10x3/uL (130-400); Red Blood Cell (RBC) Count 2.38 mill/uL (4.70-6.10); White Blood Cell (WBC) Count 5.51 10x3/uL (4.8-10.8)
[2025-04-12 06:10] LABS: Albumin 3.3 g/dL (3.1-4.5); Anion Gap 16 mmol/L (10-20); BUN (Urea Nitrogen) 74 mg/dL (8.4-25.7); BUN/Creatinine Ratio 16.12; Calc. Creatinine Clearance 11 mL/min (70-130); Calcium 8.8 mg/dL (7.8-10.44); Carbon Dioxide 18 mmol/L (23-31); Chloride 108 mmol/L (98-107); Glucose 93 mg/dL (83-110); Potassium 4.7 mmol/L (3.5-5.1); Sodium 137 mmol/L (136-145)
[2025-04-12] MEDS: Torsemide 20 MG TAB PO SCH (08:18)
[2025-04-12] MEDS: Dapagliflozin Propanediol 10 MG TAB PO SCH (11:43)
[2025-04-12 12:45] LABS: Vancomycin, Trough 20.6 ug/mL
[2025-04-13 05:03] LABS: #Basophils 0.05 10x3/uL (0.0-0.2); #Eosinophils 0.38 10x3/uL (0.0-0.7); #Monocytes 0.55 10x3/uL (0.11-0.59); #Neutrophils 3.79 10x3/uL (1.40-6.50); %Basophils 0.9 % (0.0-1.0); %Eosinophils 6.9 % (0.0-10.0); %Lymphocytes 12.0 % (21.0-51.0); %Monocytes 10.0 % (0.0-10.0); %Neutrophils 69.1 % (42.0-75.0); Hematocrit 23.6 % (42.0-52.0); Hemoglobin 7.7 g/dL (14.0-18.0); Mean Corpuscular Hemoglobin 32.4 pg (27.0-31.0); Mean Corpuscular Volume 99.2 fL (78.0-98.0); Platelet Count 216 10x3/uL (130-400); Red Blood Cell (RBC) Count 2.38 mill/uL (4.70-6.10); White Blood Cell (WBC) Count 5.49 10x3/uL (4.8-10.8)
[2025-04-13 05:20] LABS: Anion Gap 20 mmol/L (10-20); BUN (Urea Nitrogen) 77 mg/dL (8.4-25.7); Calc. Creatinine Clearance 10 mL/min (70-130); Calcium 8.7 mg/dL (7.8-10.44); Carbon Dioxide 15 mmol/L (23-31); Chloride 107 mmol/L (98-107); Glucose 97 mg/dL (83-110); Potassium 4.9 mmol/L (3.5-5.1); Sodium 137 mmol/L (136-145)
[2025-04-13] MEDS: Sodium Bicarbonate Tab 325 MG TAB PO SCH (07:58)
[2025-04-13] MEDS: Dapagliflozin Propanediol 10 MG TAB PO SCH (07:59)
[2025-04-13 11:37] LABS: Vancomycin, Trough 18.3 ug/mL
[2025-04-13 15:02] LABS: Iron 38 ug/dL (65-175); Iron Binding Capacity, Total 165 mcg/dL (261-462)
[2025-04-14 05:15] LABS: #Basophils 0.07 10x3/uL (0.0-0.2); #Eosinophils 0.30 10x3/uL (0.0-0.7); #Monocytes 0.55 10x3/uL (0.11-0.59); #Neutrophils 3.00 10x3/uL (1.40-6.50); %Basophils 1.5 % (0.0-1.0); %Eosinophils 6.2 % (0.0-10.0); %Lymphocytes 17.7 % (21.0-51.0); %Monocytes 11.4 % (0.0-10.0); %Neutrophils 62.4 % (42.0-75.0); Hematocrit 29.1 % (42.0-52.0); Hemoglobin 9.5 g/dL (14.0-18.0); Mean Corpuscular Hemoglobin 31.4 pg (27.0-31.0); Mean Corpuscular Volume 96.0 fL (78.0-98.0); Platelet Count 266 10x3/uL (130-400); Red Blood Cell (RBC) Count 3.03 mill/uL (4.70-6.10); White Blood Cell (WBC) Count 4.81 10x3/uL (4.8-10.8)
[2025-04-14 05:22] LABS: Anion Gap 14 mmol/L (10-20); BUN (Urea Nitrogen) 90 mg/dL (8.4-25.7); Calc. Creatinine Clearance 11 mL/min (70-130); Calcium 9.4 mg/dL (7.8-10.44); Carbon Dioxide 23 mmol/L (23-31); Chloride 106 mmol/L (98-107); Glucose 96 mg/dL (83-110); Potassium 5.0 mmol/L (3.5-5.1); Sodium 138 mmol/L (136-145)
[2025-04-14] MEDS: Sodium Bicarbonate Tab 325 MG TAB PO SCH (10:04)
[2025-04-14 13:10] LABS: Vancomycin, Trough 18.7 ug/mL
[2025-04-14 15:42] VITALS: TEMP 97.9
[2025-04-14 17:33] VITALS: BP 144/65
== END 2025-04-14 18:45 | disposition home health service (06) | DRG 193 ==
LOC: ERS 11:07 → ERHOLD 15:32 → 2NO 19:43
PROVIDERS: ADMIT Hospitalist; ATTEND Family Medicine
PROC: 3E03329 Introduction of Other Anti-infective into Peripheral Vein, Percutaneous Approach (ICD-10-PCS; 2025-04-06)
PROC: 30233J1 Transfusion of Nonautologous Serum Albumin into Peripheral Vein, Percutaneous Approach (ICD-10-PCS; 2025-04-11)
PROC: 30233N1 Transfusion of Nonautologous Red Blood Cells into Peripheral Vein, Percutaneous Approach (ICD-10-PCS; principal; 2025-04-13)
DX: J18.9 Pneumonia, unspecified organism (principal); I50.43 Acute on chronic combined systolic (congestive) and diastolic (congestive) heart failure; J96.01 Acute respiratory failure with hypoxia; I13.0 Hypertensive heart and chronic kidney disease with heart failure and stage 1 through stage 4 chronic kidney disease, or unspecified chronic kidney disease; N18.4 Chronic kidney disease, stage 4 (severe); N17.9 Acute kidney failure, unspecified; R04.2 Hemoptysis; E87.1 Hypo-osmolality and hyponatremia; E87.20 Acidosis, unspecified; J44.0 Chronic obstructive pulmonary disease with (acute) lower respiratory infection; Z66 Do not resuscitate; I25.5 Ischemic cardiomyopathy; I25.10 Atherosclerotic heart disease of native coronary artery without angina pectoris; E11.22 Type 2 diabetes mellitus with diabetic chronic kidney disease; J43.9 Emphysema, unspecified; D63.1 Anemia in chronic kidney disease; H35.30 Unspecified macular degeneration; I34.0 Nonrheumatic mitral (valve) insufficiency; E78.00 Pure hypercholesterolemia, unspecified; Z79.82 Long term (current) use of aspirin; Z79.899 Other long term (current) drug therapy; Z85.118 Personal history of other malignant neoplasm of bronchus and lung; Z95.5 Presence of coronary angioplasty implant and graft; Z90.2 Acquired absence of lung [part of]; Z87.891 Personal history of nicotine dependence; Z85.6 Personal history of leukemia; Z95.1 Presence of aortocoronary bypass graft; I25.2 Old myocardial infarction
CPT/HCPCS: 36415; 36430; 71045; 80048; 80053; 80069; 80202; 81001; 82565; 82728; 82805; 83540; 83550; 83605; 83735; 83880; 84145; 84484; 85025; 85046; 85379; 86850; 86900; 86901; 87040; 87070; 87077; 87086; 87186; 87205; 87400; 93005; 93306; 94660; 94760; 96365; 96366; 96367; J0692; J1308; J1644; J1940; J2916; J3373; J3375; J7050; P9016; P9047; Q5105